=== PATIENT | male | born 1930 | race Caucasian/White ===

== ENCOUNTER 2017-02-10 17:49 | Inpatient (IN) | payer MEDICARE, OTHER ==
[~2017-02-10] VITALS: Ht 190.5 cm; Wt 120.1 kg
[~2017-02-10 17:49] MED LIST: ASP81TEC PO; COU25 PO; COU5 PO; DOCU-42 PO; FURO40TA PO; HYDR1TAB69 PO; LIP20 PO; MTP50TCR PO; VALA1000 PO; ZES5 PO; [UNRECOGNIZED DRUG - CODE] PO
[2017-02-10 17:58] VITALS: BP 139/79; PULSE 97; RESP 16; O2SAT 96
--- NOTE | 2017-02-10 18:11 | ED.REPORT ---
HPI-Abd Pain M 40 and Over Date of Service February 10, 2017 ED Provider: Dr. Taco Shafer The patient is an 85 year old anticoagulated male with a history of bladder cancer, A-fib, and HTN who presents to the ED accompanied by his due to abdominal pain onset approximately 3 hrs ago. He was working on his truck this afternoon and he had to pull and wrench a nut out of his tractor. Following the incident, he c/o abdominal pain. He is on warfarin. Patient denies chest pain, fever, nausea, vomiting, history of TX, CAD, or CVA, recent changes in medications, or recent antibiotic prescription. Nursing Notes Stated Complaint: ABDOMINAL STRAIN Chief Complaint: Male Abdominal Pain Nursing Notes Reviewed: Yes Allergies: Coded Allergies: No Known Allergies (Unverified , 02/10/17) Scheduled Aspirin-Expunged Drug, Do Not Renew! (Aspirin EC-Expunged Drug, Do Not Renew!) 81 Mg Tablet 81 MG PO DAILY Atorvastatin-Expunged Drug, Do Not Renew! (Atorvastatin-Expunged Drug, Do Not Renew!) 20 Mg Tablet 20 MG PO HS Cefuroxime Axetil (Cefuroxime) 250 Mg Tablet 500 MG PO BID Take 500mg twice a day for five days. Furosemide-Expunged Drug, Do Not Renew! (Lasix-Expunged Drug, Do Not Renew!) 40 Mg Tablet 40 MG PO DAILY Lisinopril-Expunged Drug, Do Not Renew! (Lisinopril-Expunged Drug, Do Not Renew! ) 5 Mg Tablet 5 MG PO DAILY Metoprolol Suc-Expunged Drug, Do Not Renew! (Metoprolol Suc-Expunged Drug, Do Not Renew!) 50 Mg Tber 50 MG PO DAILY 1 1/2 tab Valacyclovir HCl-Expunged Drug, Do Not Renew! (Valtrex-Expunged Drug, Do Not Renew!) 1,000 Mg Tablet 1,000 MG PO Q8 Take 1000mg every 8 hours for 5 days. Warfarin Inactive Drug Do Not Use (Coumadin Inactive Drug Do Not Use) 5 Mg Tablet 5 MG PO Thu/Thu Take on Thursday and Thursday. Warfarin Inactive Drug Do Not Use (Coumadin Inactive Drug Do Not Use) 2.5 Mg Tablet 2.5 MG PO 17 Tue,Th,Thu,Sun Scheduled PRN Docusate Sod-Expunged Drug, Do Not Renew! (Docusate Sod-Expunged Drug, Do Not Renew!) 100 Mg Capsule 100 MG PO BID PRN PRN Take twice a day as needed for constipation. Hydrocod/APAP-Expunged, Do Not Renew! (VICODIN 5/500-Expunged Drug, Do Not Renew ) 1 Each Tablet 1 EACH PO Q4 PRN PRN Take as needed every 4 hours for pain. General Time Seen by MD: 18:10 Chief Complaint Abdominal pain Hx Obtained From: Patient Arrived By: Walk-in Sudden in Onset?: Yes Onset Occurred: 1 - 4 hours ago Symptom Duration: Since onset Location: : Diffuse Quality: Painful Radiation: : Does not radiate Severity: Current: Moderate Recent Healthcare: No recent doctor visit, No recent hospitalization Similar Sx Previous: No Past Medical History Past Medical History Reports: Cancer, Hypertension Reports: Atrial fibrillation Past Surgical History Urostomy Reports: Knee replacement Smoking History Unknown if Ever Smoker Social History Alcohol Use: "Social" Ambulatory Status Independent Review of Systems Constitutional: Denies: Fever Cardiovascular: Denies: Chest pain GI: Reports: Abdominal pain, Denies: Nausea, Vomiting Complete sys rev & neg: except as marked. Neurologic: Denies: Change LOC Physical Exam Initial Vital Signs Vital Signs (First) Date Time Temp Pulse Resp B/P Pulse Ox O2 Delivery O2 Flow Rate FiO2 02/10/17 17:58 36.6 97 16 139/79 96 Room Air Initial VS: Reviewed Head / Eyes: Atraumatic, Normocephalic, PERRL ENT: Mucous membranes moist Extremities: Vascular intact, Neuro intact, No swelling Skin: Warm, Dry General/Constitutional: Awake, Alert, Cooperative, Not toxic appearing Respiratory / Chest: Atraumatic, Breath sounds NL, Breath sounds = bilat Cardiovascular: Heart rate NL, Regular rhythm, Heart sounds NL Abdomen: No rebound Tenderness/Guarding/Rebound: Positive: Tender epigastric midline tenderness Back: Atraumatic, Inspection NL Interpretation & Diagnostics Lab Results Interpretation Result Diagram: 02/10/17190102/10/171901 Test 02/10/17 19:02 02/10/17 21:02 White Blood Count 9.2th/mm3 (3.8-10.1) Red Blood Count 5.18mil/mm3 (4.40-5.80) Hemoglobin 16.7g/dL (13.8-17.2) Hematocrit 49.7% (41.0-50.0) Mean Corpuscular Volume 95.9fL (81-100) Mean Corpuscular Hemoglobin 32.2pg (27.0-35.0) Mean Corpuscular Hemoglobin Concent 33.6% (32.0-37.0) Red Cell Distribution Width 13.7% (12.3-15.4) Platelet Count 107bil/L (150-400) Neutrophils (%) (Auto) 89.2% (40-74) Lymphocytes (%) (Auto) 4.9% (14-46) Monocytes (%) (Auto) 5.6% (4-12) Eosinophils (%) (Auto) 0.1% (0-5) Basophils (%) (Auto) 0.1% (0-3) Prothrombin Time 23.2sec (8.1-12.5) Prothromb Time International Ratio 2.13ratio Sodium Level 139mEq/L (134-144) Potassium Level 4.6mEq/L (3.5-5.2) Chloride Level 103mEq/L (97-108) Carbon Dioxide Level 18mmol/L (18-29) Blood Urea Nitrogen 15mg/dL (8-27) Creatinine 0.83mg/dL (0.76-1.27) Estimat Glomerular Filtration Rate 93mL/min (>59) Glucose Level 122mg/dL (60-99) Lactic Acid Level 2.0mmol/L (0.4-2.0) Calcium Level 10.2mg/dL (8.5-10.1) Magnesium Level 1.9mg/dL (1.6-2.6) Total Bilirubin 1.2mg/dL (0.0-1.2) Aspartate Amino Transf (AST/SGOT) 33U/L (0-50) Alanine Aminotransferase (ALT/SGPT) 20U/L (0-44) Alkaline Phosphatase 74U/L (25-160) Total Protein 7.5g/dL (6.4-8.4) Albumin 4.2g/dL (3.4-5.0) Lipase 56U/L (13-60) Urine Color Yellow (YELLOW) Urine Appearance Hazy (CLEAR,HAZY) Urine pH 6.0 (5.0-8.0) Urine Specific [place] 1.020 (1.003-1.035) Urine Protein 30mg/dL (NEG,TRACE) Urine Glucose (UA) Negativemg/dL (NEGATIVE) Urine Ketones Tracemg/dL (NEGATIVE) Urine Occult Blood Moderate (NEGATIVE) Urine Nitrite Positive (NEGATIVE) Urine Bilirubin Negative (NEGATIVE) Urine Urobilinogen Normalmg/dL (NORMAL) Urine Leukocyte Esterase Small (NEGATIVE) Urine RBC 3-10/hpf (0-2) Urine WBC 0-5/hpf (0-5) Urine Epithelial Cells Few/hpf (NONE-MOD) Urine Crystals None seen (NONE SEEN) Urine Bacteria Many/hpf (NONE-FEW) Urine Hyaline Casts None/lpf (NONE) Urine Granular Casts None seen (NONE SEEN) Urine Waxy Casts None seen (NONE SEEN) Urine Red Blood Cell Casts None seen (NONE SEEN) Urine White Blood Cell Casts None seen (NONE SEEN) Urine Mucus None seen (None Seen) Urine Trichomonas None seen (NONE SEEN) Urine Yeast None (NONE SEEN) Urinalysis Comment None Urine Culture Reflexed Indicated ECG Interpretation 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 Cannot exclude developing bowel obstruction, including closed-loop obstruction or internal hernia, although the transition point and exact anatomy is unknown. As clinically required, surgical consultation could be obtained. Large left inguinal bowel and fat containing hernia, unchanged. Dictated by: Emerson Hill M.D. on 02/10/2017 at 20:09 Approved by: Emerson Hill M.D. on 02/10/2017 at 20:26 Study type: Abdominal CT no contrast Interpretation / Wet Read by: Interpret - Radiologist Re-Eval/Medical Decision Med Decision/Clinical Course The CT is worrisome. Mr. Whitehead is cooker tender in spite of aliquots of opiates. I will admit him the hospital for surgical consultation and IV antibiotic for urinary tract infection. He will be admitted to the hospitalist service of Dr. Mann will perform a consultation emergency department. Time of Eval: 21:30 Re-Evaluation/Progress Note: Pt rechecked. Informed pt of results of abdominal CT and need for admission. Pt understands and agrees with plan. All questions addressed. Consultation : Referral / Consult Name: Ilan Mann MD Consulted With: Hospitalist Call Returned at: 21:30 Regional Vice President Surgical Sales: Will see patient, Agrees with eval, Agrees with plan Note: Dr. Mann will see pt in the ED. Counseled Regarding: Diagnosis, Lab results, Need for admission Discharge & Departure Primary Impression: Epigastric pain Additional Impressions: Bowel obstruction Intestinal obstruction type: other intestinal obstruction Qualified Code: K56.69 - Other intestinal obstruction Urinary tract infection Urinary tract infection type: acute cystitis Hematuria presence: without hematuria Qualified Code: N30.00 - Acute cystitis without hematuria Disposition: ADMITTED TO HOSPITAL Vital Signs - All Vital Signs Date Time Temp Pulse Resp B/P Pulse Ox O2 Delivery O2 Flow Rate FiO2 02/10/17 21:47 36.8 99 18 148/88 97 Room Air 02/10/17 17:58 36.6 97 16 139/79 96 Room Air )( All Prior VS Reviewed: Yes Condition: Stable Referrals: [facility] Scribe Attestation Portion of this note were transcribed by Hallie Mcmillan. I, Dr. Taco Shafer, personally performed the history, physical exam, and medical decision-making: I reviewed and confirmed the accuracy for the information in the transcribed note. Signed by: shanta Hayward, 02/10/17 2200 copies to: [facility] Tcao Shafer DO February 10, 2017 18:11 Hallie Mcmillan February 10, 2017 18:35
[2017-02-10] MEDS ORDERED: 0.9% Sodium Chloride 1,000 ML IV ONE (18:32)
[2017-02-10] MEDS: fentaNYL-PF 50 mCg/mL 2 mL Inj IVPUSH PRN ×3 (19:05→21:08)
[2017-02-10 19:16] LABS: BASOPHILS % (AUTO) 0.1 % (0-3); EOSINOPHILS % (AUTO) 0.1 % (0-5); MONOCYTES % (AUTO) 5.6 % (4-12); Mean Corpuscular Hemoglobin 32.2 pg (27.0-35.0); Mean Corpuscular Volume 95.9 fL (81-100); NEUTROPHILS % (AUTO) 89.2 % (40-74); Platelet Count 107 bil/L (150-400)
[2017-02-10 19:27] LABS: INR 2.13 ratio
[2017-02-10 19:33] LABS: Magnesium 1.9 mg/dL (1.6-2.6)
--- NOTE | 2017-02-10 20:27 | DRSVH ---
PROCEDURE: CT ABDOMEN AND PELVIS WITH CONTRAST ([id number]) INDICATIONS: midline belly pain, on warfarin, trauma TECHNIQUE: After the administration of intravenous contrast, 5 mm thick sections acquired from the diaphragm to the symphysis. 5 mm coronal and sagittal reformats were acquired. For radiation dose reduction, the following was used: automated exposure control, adjustment of mA and/or kV according to patient yaritza tavares COMPARISON: [facility], CT, CT KUB, 01/31/2016, 12:32. FINDINGS: Image quality: Excellent. ABDOMEN: Lung bases: Bibasilar scarring/atelectasis. Heart is enlarged. There are coronary artery calcificatio ns. Solid organs: Liver and spleen are normal in size and enhancement, except for a 3 mm splenic hypoden sity on image 30 which is too small to characterize definitively. Gallbladder surgically absent. Bi liary system is non dilated. Pancreas enhances normally. No adrenal nodules. Multiple bilateral dorinda al cysts are present. No definite hydronephrosis. There is mild dilatation of the right ureter howeve r this is unchanged since 01/31/16. Peritoneum and bowel: There is a dilated bowel loop measuring 6 cm in diameter containing gas and padmini ris seen on image 39 series 2. . No free fluid or free air. There is moderate stool. The rectum is decompressed otherwise unremarkab le. The appendix is not clearly identified. 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 Aorta and inferior vena cava are normal in size. Miscellaneous: No ventral hernias. PELVIS: Genitourinary: The bladder is resected. Miscellaneous: Large left inguinal hernia containing fat and bowel loops without evidence of obstruct ion at this time. Bones: No suspicious bony lesions. No vertebral body compression fractures. Diffuse osteopenia is present. There are scattered discogenic changes and scoliosis. IMPRESSION: Dilated bowel loop seen within the midline upper abdomen, probably a loop of colon with large amount of stool. Cannot exclude developing bowel obstruction, including closed-loop obstruction or internal hernia, although the transition point and exact anatomy is unknown. As clinically required, surgical consultation could be obtained. Large left inguinal bowel and fat containing hernia, unchanged. Dictated by: Emerson Hill M.D. on 02/10/2017 at 20:09 Approved by: Emerson Hill M.D. on 02/10/2017 at 20:26
[2017-02-10] MEDS ORDERED: HYDROmorphone 0.5 mg/0.5 mL iSecure Syringe IVPUSH PRN (21:15)
[2017-02-10 21:24] LABS: APPEARANCE,URINE HAZY (CLEAR,HAZY); COLOR,URINE YELLOW (YELLOW); OCCULT BLOOD,URINE MODERATE (NEGATIVE); UROBILINOGEN,URINE NORMAL (NORMAL)
[2017-02-10] MEDS ORDERED: cefTRIAXone Inj 2,000 MG in Dextrose 5% Minibag Plus 50 ML IV ONE (21:35)
[2017-02-10 21:47] VITALS: BP 148/88; PULSE 99; RESP 18; O2SAT 97
[2017-02-10] MEDS ORDERED: Polyethylene Glycol (PEG) 17 Gm Powder PO PRN (22:35)
[2017-02-10] MEDS ORDERED: Ondansetron 2 mg/mL 2 mL Inj IVPUSH PRN (22:35)
[2017-02-10] MEDS ORDERED: Alum-Mag Hydrox-Simeth 30 mL Suspension PO PRN (22:35)
--- NOTE | 2017-02-10 22:48 | PCM.HPMED ---
Subjective Date of Service February 10, 2017 Primary Provider: Admitting Physician: Primary Care Physician: Kar Russo DO Attending Physician: Chief Complaint: Abdominal Pain History of Present Illness: Jai Whitehead is an 86 year old gentleman with a PMH of Afib on coumadin, bladder cancer s/p chemotherapy and partial resection, and HTN who presents with a 1 day history of abdominal pain that he describes as sharp and located in a band around his midsection. He relates that he was working on a tractor earlier today and was in an awkward position wrenching on a stubborn bolt when he gradually manifested a sharp, crampy abdominal pain in a band about his midsection around the level of the umbilicus. He denies any history of similar events in the past. He did feel some associated nausea with a single episode of emesis. He states that he last BM was early this AM, but that he cannot recall having passed flatus since that small BM despite feeling "Gassy". He cannot recall the exact nature of his treatment for his bladder cancer but he does know that it included chemotherapy and partial bladder resection and subsequent placement of urostomy tubes. He denies chest pain, SOB, hematochezia, alteration in bladder habits, fever/chills, or constitutional symptoms. In the ED the patient underwent CT of the abdomen which revealed a likely though not definite SBO, and urinalysis reveals signs of active UTI. The patient responded well to PRN dilaudid. Review of Systems: Comprehensive ROS negative except as outlined above in the HPI Allergies Coded Allergies: No Known Allergies (Unverified , 02/10/17) Home Medications Scheduled Aspirin-Expunged Drug, Do Not Renew! (Aspirin EC-Expunged Drug, Do Not Renew!) 81 Mg Tablet 81 MG PO DAILY Atorvastatin-Expunged Drug, Do Not Renew! (Atorvastatin-Expunged Drug, Do Not Renew!) 20 Mg Tablet 20 MG PO HS Cefuroxime Axetil (Cefuroxime) 250 Mg Tablet 500 MG PO BID Take 500mg twice a day for five days. Furosemide-Expunged Drug, Do Not Renew! (Lasix-Expunged Drug, Do Not Renew!) 40 Mg Tablet 40 MG PO DAILY Lisinopril-Expunged Drug, Do Not Renew! (Lisinopril-Expunged Drug, Do Not Renew! ) 5 Mg Tablet 5 MG PO DAILY Metoprolol Suc-Expunged Drug, Do Not Renew! (Metoprolol Suc-Expunged Drug, Do Not Renew!) 50 Mg Tber 50 MG PO DAILY 1 1/2 tab Valacyclovir HCl-Expunged Drug, Do Not Renew! (Valtrex-Expunged Drug, Do Not Renew!) 1,000 Mg Tablet 1,000 MG PO Q8 Take 1000mg every 8 hours for 5 days. Warfarin Inactive Drug Do Not Use (Coumadin Inactive Drug Do Not Use) 5 Mg Tablet 5 MG PO Thu/Thu Take on Thursday and Thursday. Warfarin Inactive Drug Do Not Use (Coumadin Inactive Drug Do Not Use) 2.5 Mg Tablet 2.5 MG PO 17 Thu,,Thu,Sun Scheduled PRN Docusate Sod-Expunged Drug, Do Not Renew! (Docusate Sod-Expunged Drug, Do Not Renew!) 100 Mg Capsule 100 MG PO BID PRN PRN Take twice a day as needed for constipation. Hydrocod/APAP-Expunged, Do Not Renew! (VICODIN 5/500-Expunged Drug, Do Not Renew ) 1 Each Tablet 1 EACH PO Q4 PRN PRN Take as needed every 4 hours for pain. PMH Bladder Cancer, Hypertension Atrial fibrillation on coumadin Surgical History Urostomy partial cystectomy Knee replacement Family History Patient cannot recall relevant family history, has likely outlived any relevant history Social History Hx Alcohol Use: Yes Hx Substance Use: No Hx Tobacco Use: No Smoking Status: Unknown if Ever Smoker Exam Vital Signs Vital Sign - Last Date Time Temp Pulse Resp B/P Pulse Ox O2 Delivery O2 Flow Rate FiO2 02/10/17 21:47 36.8 99 18 148/88 97 Room Air Exam Gen: A/O x3, pleasant cooperative gentleman in NAD Neck: Supple, non tender, Full ROM HEENT: PERRL, EOMI, mild scleral icterus, no conjunctival pallor, mucous membranes moist CV: Irregularly irregular, no murmurs rubs or gallops Resp: Lungs CTA BL, no wheezing rales or rhonchi Abd: Soft, mild LLQ tenderness to palpation, no rebound masses or guarding, BS+ 4Q Extr: No cyanosis or clubbing, moderate BL non pitting LE edema Neuro: CN 2-12 grossly intact, no focal neurologic deficit. Lab and Diagnostics Labs Item Value Date Time Red Blood Count 5.18 mil/mm3 02/10/171901 Neutrophils (%) (Auto) 89.2 % H 02/10/171901 Lymphocytes (%) (Auto) 4.9 % L 02/10/171901 Monocytes (%) (Auto) 5.6 % 02/10/171901 Eosinophils (%) (Auto) 0.1 % 02/10/171901 Basophils (%) (Auto) 0.1 % 02/10/171901 Estimat Glomerular Filtration Rate 93 mL/min 02/10/171901 Lactic Acid Level 2.0 mmol/L 02/10/171901 Calcium Level 10.2 mg/dL H 02/10/171901 Magnesium Level 1.9 mg/dL 02/10/171901 Total Bilirubin 1.2 mg/dL 02/10/171901 Aspartate Amino Transf (AST/SGOT) 33 U/L 02/10/171901 Alanine Aminotransferase (ALT/SGPT) 20 U/L 02/10/171901 Alkaline Phosphatase 74 U/L 02/10/171901 Total Protein 7.5 g/dL 02/10/171901 Albumin 4.2 g/dL 02/10/171901 Lipase 56 U/L 02/10/171901 Result Diagram: 02/10/17190102/10/171901 X-Rays, CTs and MRIs CT ABDOMEN AND PELVIS WITH CONTRAST IMPRESSION: Dilated bowel loop seen within the midline upper abdomen, probably a loop of colon with large amount of stool. Cannot exclude developing bowel obstruction, including closed-loop obstruction or internal hernia, although the transition point and exact anatomy is unknown. As clinically required, surgical consultation could be obtained. Large left inguinal bowel and fat containing hernia, unchanged. Dictated by: Emerson Hill M.D. on 02/10/2017 at 20:09 Approved by: Emerson Hill M.D. on 02/10/2017 at 20:26 . 12-lead ECG Afib, RBBB, old inferior infarct Assessment & Plan Jai Whitehead is an 86 year old man with a PMH of Afib on coumadin, bladder cancer s/p partial resection, and HTN who presents with a 1 day history of abdominal pain with associated nausea and vomiting. CT scan indicative of likely SBO, UA indicates active UTI. 1. Likely Small bowel obstruction, POA, acute. Active -Dr. Mann has been made aware of the patient and will see him to render recommendations -NPO -Given 1L of NS in the ED, continued at 100 ml/hr -Will defer to Dr. Mann whether NG tube is necessary, and timing of possible gastrographin challenge test -Dilaudid 0.5 mg Q4 PRN for pain control(patient advised on side effects of opiate analgesia and will use sparingly) -Track for BM or flatus 2. Afib with RVR, POA, chronic. Active -Continue home Metoprolol 50 mg PO daily -Warfarin dosing per pharmacist -INR 2.13 -Tele monitoring 3. HTN, POA, chronic. Active -Metoprolol as above -Holding home Lasix while giving IVF -Continue home Lisinopril 4. Uncomplicated urinary tract infection -Urine culture pending -Ceftriaxone 2g Q24 -IVF as above Code Status: DNR/DNI Disposition: Patient admitted under inpatient status with expected length of stay > 2 midnights for severity of present symptoms, complexities of treatment plan and risk for adverse event Pain Evaluation: Adequate Pain Control GI Prophylaxis: H2 clarke VTE Prophylaxis: Theraputic Anticoag with Warfarin Resuscitation Status: DNR/DNI:Do Not Resuscitate/Intubate Attending Statement The patient was seen and examined together with Dr. Bender on 02/10 and I agree with the history, exam and plan as outlined in the note above. Ilan Bender DO February 10, 2017 22:48 Tommy Pollard MD February 11, 2017 02:22
--- NOTE | 2017-02-10 23:09 | PCM.CONPHA ---
Assessment/Plan Assessment/Plan ANTICOAGULATION MANAGEMENT BY PHARMACY -INDICATION: afib -HOME DOSE: 2.5 MG DAILY EXCEPT THURSDAY HE TAKES 5 MG -CONCURRENT ANTICOAGULATION: none -CRCL: 90.4 ML/MIN -COAG TRENDS: Date INR 2.13 -[id number] SCORE: 3 PLAN: Patient took home dose of Warfarin this morning, INR within range. Will dose tomorrow based on morning INR Pharmacy appreciates consult and will continue to monitor. THANKS! Jessica Larson PharmD February 10, 2017 23:09
--- NOTE | 2017-02-10 23:20 | NUR ---
Admit Pt arrived on unit via stretcher by Alondra at 2320. Report given by Danielle Torres RN. Pt ambulated with cane to bedside. Pt stated pain 3/10. Pt BP elevated. Pt put on tele.
[2017-02-10 23:35] VITALS: BP 170/95; PULSE 90; RESP 19; O2SAT 97
[2017-02-11] VITALS (8 sets, daily range): BP systolic 138–166; BP diastolic 79–94; PULSE 69–113; RESP 16–19; O2SAT 93–96
[2017-02-11] MEDS: HYDROmorphone 0.5 mg/0.5 mL iSecure Syringe IVPUSH PRN (00:20)
[2017-02-11] MEDS: 0.9% Sodium Chloride 1,000 ML IV SCH ×3 (00:28→20:58)
[2017-02-11] MEDS: Sodium Chloride LOK Flush 10 mL Syringe IVFLUSH SCH ×3 (00:30→16:10)
--- NOTE | 2017-02-11 00:31 | CONS ---
[address] [address] CONSULTATION REPORT PATIENT: DILIP NGUYEN : 1930 MR#: [id number] ADMIT: 02/10/2017 JOB ID: [id number] DATE OF SERVICE: 02/10/2017 CHIEF COMPLAINT AND IDENTIFICATION: I have been asked to consult on this 86-year-old man in the emergency department with a CT reading of possible bowel obstruction, regarding a possible bowel obstruction. HISTORY OF PRESENT ILLNESS: The patient has no recent history of nausea or vomiting, nor decreased stool output. He has on average a soft bowel movement each day and he had a normal bowel movement today. This afternoon, he changed the cutting blades on his lawn tractor by driving it up onto some blocks and then lying underneath on his back with a fair amount of torquing and twisting, after which he noted that he had terrible abdominal pain and felt that he had pulled a muscle. He denies direct abdominal trauma and felt that this was a muscular strain, but when he contacted the nurse he was instructed to come to the emergency department primarily as he is on anticoagulation. In our emergency department, a CAT scan was obtained looking for rectus hematoma as the patient is anticoagulated but none was found. Workup also noted the patient to have significant urinary tract infection in his ileal conduit. PAST MEDICAL HISTORY: Bladder cancer, status post resection, hypertension, atrial fibrillation on Coumadin, status post knee replacement. MEDICATIONS: Aspirin, atorvastatin, lisinopril, metoprolol, warfarin. ALLERGIES: None. SOCIAL HISTORY: Negative tobacco. Negative daily alcohol use. FAMILY HISTORY: REVIEW OF SYSTEMS: Per admission history and physical. PHYSICAL EXAMINATION: Tall, vibrant man insisting on standing up to greet me when I came in to see him in the emergency department. Temperature is 36.8, pulse is recorded at 99, blood pressure is 148/88. Abdominal examination reveals that he has normal bowel tones, no significant upper abdominal tenderness, and no upper abdominal hernias. LABORATORIES: His white count is 9.2, his is 49.7, platelet count is 107. Electrolytes are normal. Calcium is high at 10.2. LFTs are normal. Albumin is 4.2. Lipase is 56. UA demonstrates moderate blood, positive nitrites, many bacteria. IMAGING: CT scan has been reviewed, both images and the reports. The report notes that he has a dilated bowel loop seen within the midline upper abdomen, probably a loop of colon with a large amount of stool. The report also says "cannot exclude developing bowel obstruction." There is a left inguinal hernia that has been seen on previous CT scans by report, and to my view there is no sign of small bowel obstruction on his films. He does seem to have gas and stool throughout his colon, and interestingly, most of the colon does not appear to be dilated except for this one large loop that would apparently be in the transverse colon. It does have a bit of an unusual appearance and at first I thought it might be a dilated stomach as his stomach is a bit enlarged. There is no sign of small bowel obstruction to my reading. IMPRESSION AND PLAN: An 86-year-old man with a history of bladder cancer and a bowel abnormality on his CT scan. I do not think he has a bowel obstruction given his lack of obstructive symptoms and the appearance of this CAT scan. Nonetheless, he does have an abnormal loop of bowel that I believe is his colon and General Surgery will follow along until the exact etiology of his abdominal pain is determined, as requested by the medical service.
[2017-02-11 07:33] LABS: BASOPHILS % (AUTO) 0 % (0-3); EOSINOPHILS % (AUTO) 0 % (0-5); MONOCYTES % (AUTO) 7.4 % (4-12); Mean Corpuscular Hemoglobin 32.3 pg (27.0-35.0); Mean Corpuscular Volume 97.3 fL (81-100); NEUTROPHILS % (AUTO) 87.4 % (40-74); Platelet Count 101 bil/L (150-400)
[2017-02-11 07:41] LABS: INR 2.69 ratio
[2017-02-11 07:50] LABS: Magnesium 1.9 mg/dL (1.6-2.6); Phosphorus 2.7 mg/dL (2.5-4.9)
[2017-02-11] MEDS ORDERED: WARF2.5T82 PO (08:04)
[2017-02-11] MEDS ORDERED: WARF5TAB7 PO (08:04)
[2017-02-11] MEDS ORDERED: BIMA2.5D5 BOTH_EYES (08:05)
[2017-02-11] MEDS ORDERED: ATOR40TA69 PO (08:05)
[2017-02-11] MEDS ORDERED: ASPI-973 PO (08:06)
[2017-02-11] MEDS ORDERED: LISI-571 PO (08:08)
[2017-02-11] MEDS ORDERED: METO-272 PO (08:08)
--- NOTE | 2017-02-11 09:14 | NUR ---
Social Work-initial assessment: Data:See initial assessment. Pt is a 86 y/o male who was admitted on 02/10/17 for abd pain per H&P. Pt's insurance is [employer] and PCP is Kar Russo MD. EMR reviewed. SW met with pt at bedside to discuss discharge planning, SW role explained. Pt is alert and oriented x3. Pt resides at home with his who has dementia, pt is primary caregiver. Pt's daughter Kristal is staying with at home while pt is in the hospital. Pt uses a cane to ambulate and does drive. Pt has no HH or SNF history. Pt has no nursing home care insurance or VA benefits. SW discussed DPOA/ advanced directive, pt confirms he has completed this, SW encouraged a copy to be brought in. SW discussed assistance for pt's , but pt feels like things are going fine at home. Per RN notes, pt has been up independent in his room. Pt confirms that his daughter or he will drive himself home. SW provided phone number and plan on white board in room. No anticipated discharge needs. SW will continue to follow. Assessment:pt who is independent at baseline. Plan:Pt to discharge home when medically stable via POV. No anticipated discharge needs. SW will continue to follow. KSENIA Mirza Addendum: 02/11/17 at 0917 by JOSEPH MCPHERSON SS Amended: Links added.
[2017-02-11] MEDS: MeTOProlol XL 50 mg ER24 Tablet PO SCH (09:18)
[2017-02-11] MEDS: Famotidine Inj 20 MG in IV Premix 1 EACH IV SCH ×2 (09:24→20:58)
[2017-02-11] MEDS: fentaNYL-PF 50 mCg/mL 2 mL Inj IVPUSH PRN (10:29)
--- NOTE | 2017-02-11 14:41 | PCM.PNSURG ---
Subjective Date of Service: February 11, 2017 Date of Service: February 11, 2017 Visit Information: Reason for Visit Abd Pain Uti Early Bowel Obstruction Surgery/Surgery Date Post-Op Day # Date of Admission: February 10, 2017 at 23:01 Hospital Day #1 Subjective: Patient describes persistent upper abdominal ache which is described as similar to when he tries to defecate and use his abdominal muscles when constipated. He reports this pain to be noted before this admit but usually goes away. Reports no BM or flatus since admit. 1 bout of emesis early this am. Not nauseous at time of interview. Denies fevers, chills, chest pain or sob. Postop General: Other (upper abdominal pain) Gastrointestinal: No N/V, Other (no flatus) Pain Management: IV Push (fentanyl, dilaudid) Postop Activity: Other (unable to ambulate 2/2 to lines) Objective Objective pleasant, mildly confused elderly male in no apparent distress Vital Sign- Last 8 Hours Date Time Temp Pulse Resp B/P Pulse Ox O2 Delivery O2 Flow Rate FiO2 02/11/17 12:12 36.6 69 16 162/81 96 Room Air 02/11/17 11:09 80 02/11/17 09:00 37.0 78 18 163/79 96 Room Air Intake and Output- Last 8 Hour 02/11/17 Cumulative From/Thru 07:00 02/10/17 17:58 - 02/11/17 06:42 Intake Total 609 ml 1609 ml Output Total 700 ml 700 ml Balance -91 ml 909 ml Intake IV Total 609 ml 1609 ml Output Urine Total 700 ml 700 ml General: Alert, Cooperative Lungs: Clear to Auscultation Abdomen: Soft, Non-tender, Non-distended, No masses, Normoactive bowel tones Extremities: Distal Pulses Palpable Catheters: None Result Diagram: 02/11/1770202/11/17702 Diagnostics: PROCEDURE: CT ABDOMEN AND PELVIS WITH CONTRAST ([id number]) ABDOMEN: Lung bases: Bibasilar scarring/atelectasis. Heart is enlarged. There are coronary artery calcifications. Solid organs: Liver and spleen are normal in size and enhancement, except for a 3 mm splenic hypodensity on image 30 which is too small to characterize definitively. Gallbladder surgically absent. Biliary system is non dilated. Pancreas enhances normally. No adrenal nodules. Multiple bilateral renal cysts are present. No definite hydronephrosis. There is mild dilatation of the right ureter however this is unchanged since 01/31/16. Peritoneum and bowel: There is a dilated bowel loop measuring 6 cm in diameter containing gas and debris seen on image 39 series 2. No free fluid or free air. There is moderate stool. The rectum is decompressed otherwise unremarkable. The appendix is not clearly identified. 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 Aorta and inferior vena cava are normal in size. Miscellaneous: No ventral hernias. PELVIS: Genitourinary: The bladder is resected. Miscellaneous: Large left inguinal hernia containing fat and bowel loops without evidence of obstruction at this time. Bones: No suspicious bony lesions. No vertebral body compression fractures. Diffuse osteopenia is present. There are scattered discogenic changes and scoliosis. IMPRESSION: Dilated bowel loop seen within the midline upper abdomen, probably a loop of colon with large amount of stool. Cannot exclude developing bowel obstruction, including closed-loop obstruction or internal hernia, although the transition point and exact anatomy is unknown. As clinically required, surgical consultation could be obtained. Large left inguinal bowel and fat containing hernia, unchanged. Assessment & Plan Impression possible early sbo Problems: Plan continue NPO Rocephin KUB in AM PT AM labs Pain Management: fentanyl, dilaudid VTE Prophylaxis: Theraputic Anticoag with Warfarin Resuscitation Status: DNR/DNI:Do Not Resuscitate/Intubate Jordy Gama PA-C February 11, 2017 14:41
--- NOTE | 2017-02-11 17:08 | NUR ---
Mentation/Vomiting Pt. vomited once this morning and PRN zofran was given as well as fentanyl to help with abdominal pain. Both N/V resolved but pain is still persistent. Pt. states he will let me know when he wants another PRN pain medication. As of now Pt. states his pain level is at a consistent 5 to 6 out of 10. Pt. appears to be more forgetful than he was this morning. Pt. around 1315 disconnected his IV and was fumbling around his room. After reorientating Pt. he became cooperative with care and understood why he needed to stay and use hi scall light for assistance. Pt. continues to forget to sabrina call light and bed alarm is put on. Will continue to monitor and MD made aware.
--- NOTE | 2017-02-11 19:04 | PCM.PNMED ---
Subjective Date of Service February 11, 2017 Subjective Patient was seen and examined at bedside today. Patient denies any chest pain, shortness of breath. Patient reports nausea and vomiting. There are some signs of dementia with this patient so obtaining a full history is questionable. Overnight events: None Exam Vital Signs Vital Sign - Last Date Time Temp Pulse Resp B/P Pulse Ox O2 Delivery O2 Flow Rate FiO2 02/11/17 16:27 36.6 76 16 150/94 94 Room Air Intake and Output 02/10/17 02/10/17 02/11/17 Cumulative From/Thru 15:00 23:00 07:00 02/10/17 17:58 - 02/11/17 06:42 Intake Total 1000 ml 609 ml 1609 ml Output Total 700 ml 700 ml Balance 1000 ml -91 ml 909 ml IV Total 1000 ml 609 ml 1609 ml Output Urine Total 700 ml 700 ml Exam Physical Exam: GEN: Patient was awake, alert, responding appropriately to questions HEENT: Pupils equal round and reactive to light, extraocular eye muscles intact , Neck soft supple, trachea midline, nomocephalic/atraumatic CV: + S3, regular rate , no murmurs auscultated Respiratory: CTAB, no wheezes, rales, rhonchi GI: Hypoactive bowel sounds, soft, compressible, nontender to palpation : Urine bag intact EXT: no clubbing, cyanosis, edema Neuro: Cranial nerves II-XII grossly intact Psych: mood and affect were appropriate IVs and Medications Medications Reviewed: Medications were reviewed in detail Lab and Diagnostics Result Diagram: 02/11/1770202/11/17 07 X-Rays, CTs and MRIs CT ABDOMEN AND PELVIS WITH CONTRAST IMPRESSION: Dilated bowel loop seen within the midline upper abdomen, probably a loop of colon with large amount of stool. Cannot exclude developing bowel obstruction, including closed-loop obstruction or internal hernia, although the transition point and exact anatomy is unknown. As clinically required, surgical consultation could be obtained. Large left inguinal bowel and fat containing hernia, unchanged. Dictated by: Emerson Hill M.D. on 02/10/2017 at 20:09 Approved by: Emerson Hill M.D. on 02/10/2017 at 20:26 . 12-lead ECG Afib, RBBB, old inferior infarct Assessment & Plan Jai Whitehead is an 86 year old man with a PMH of Afib on coumadin, bladder cancer s/p partial resection, and HTN who presents with a 1 day history of abdominal pain with associated nausea and vomiting. CT scan indicative of likely SBO, UA indicates active UTI. Likely Small bowel obstruction, POA, acute. Active -Dr. Mann (general surgery), following -NPO -Continue normal saline at 100 ml/hr -Dilaudid 0.5 mg Q4 PRN for pain control(patient advised on side effects of opiate analgesia and will use sparingly) Afib with RVR, POA, chronic. Active -Continue home Metoprolol 50 mg PO daily -Warfarin dosing per pharmacist -INR 2.13 -Tele monitoring HTN, POA, chronic. Active -Metoprolol as above -Holding home Lasix while giving IVF -Continue home Lisinopril Uncomplicated urinary tract infection -Urine culture pending -Ceftriaxone 2g Q24 -IVF as above Code Status: DNR/DNI Disposition: The patient seems to be progressing well and returning back to his baseline status and will most likely be discharged tomorrow. At this time placement may be an issue with the patient and will follow up with PT in the morning. GI Prophylaxis: H2 clarke VTE Prophylaxis: Theraputic Anticoag with Warfarin Resuscitation Status: DNR/DNI:Do Not Resuscitate/Intubate Elma Mcfarlane DO February 11, 2017 19:04
--- NOTE | 2017-02-11 19:45 | NUR ---
Neuro Pt stating he needs to go. That he has family waiting for him outside to take him home. Pt was then told he wasn't discharged yet and that he has an x-ray tomorrow and IV antibiotics to have tonight. Pt stated he was not told this and that he hadn't seen a doctor today. Pt became upset with the idea of staying and having family being here to get him. Pt talked into waiting in his room until family contacted. Pt stated "I will wait a reasonable amount of time...15 minutes." Pt called and daughter Rocio picked up. They were under the impression that they would come tomorrow to possibly take him home. I explained the situation. Transferred call to patient room. Talking with family did not seem to help and he stated " I'm sitting in this hotel room." Stated if he had a car he would drive home and that he couldn't call a cab because he doesn't have his wallet. After call was competed he was reoriented that he was in the hospital and that insurance would pay for his stay. He slowly agreed to stay in his room for medications and get x-ray in the am. Evelyn Arriaza sitting with patient.
[2017-02-11] MEDS: cefTRIAXone Inj 2,000 MG in Dextrose 5% Minibag Plus 50 ML IV SCH (22:37)
[2017-02-12] VITALS (8 sets, daily range): BP systolic 135–150; BP diastolic 80–89; PULSE 55–98; RESP 16–18; O2SAT 91–95
[2017-02-12] MEDS: Sodium Chloride LOK Flush 10 mL Syringe IVFLUSH SCH ×3 (00:17→16:10)
--- NOTE | 2017-02-12 05:04 | NUR ---
Neuro Pt had bouts of confusion throughout the night. Pt reoriented as needed. Pt did talks about frustration with being in the hospital and wanting to go home. A goal established with patient is to wait for the arrival of his daughter and around noon. Also to have x-ray taken in the am. RN/RELAY TECHNICIAN sat with patient throughout entire shift due to patient at one point trying to take apart IV so that "I can drink it." Care continues.
[2017-02-12 07:39] LABS: BASOPHILS % (AUTO) 0 % (0-3); EOSINOPHILS % (AUTO) 0 % (0-5); MONOCYTES % (AUTO) 8.7 % (4-12); Mean Corpuscular Hemoglobin 32.3 pg (27.0-35.0); NEUTROPHILS % (AUTO) 87.8 % (40-74); Platelet Count 100 bil/L (150-400)
[2017-02-12 07:55] LABS: INR 4.1 ratio
[2017-02-12] MEDS: Famotidine Inj 20 MG in IV Premix 1 EACH IV SCH ×2 (08:59→20:51)
[2017-02-12] MEDS: 0.9% Sodium Chloride 1,000 ML IV SCH ×2 (08:59→14:35)
[2017-02-12] MEDS: MeTOProlol XL 50 mg ER24 Tablet PO SCH (09:00)
--- NOTE | 2017-02-12 10:43 | DRSVH ---
PROCEDURE: X-RAY KUB ([id number]) INDICATIONS: POSSIBLE SMALL BOWEL OBSTRUCTION TECHNIQUE: One view of the abdomen acquired. COMPARISON: [facility], CT, CT ABD PELVIS W CON, 02/10/2017, 19:51. FINDINGS: Surgical changes and devices: None. Bowel: Gaseous distention of bowel loops within the midabdomen again visualized similar to previous C T scan which may represent the:. Bowel gas pattern otherwise is normal. No pneumatosis or bowel wal l thickening. No pneumoperitoneum. Soft tissues: No suspicious abdominal calcifications. Visualized solid organ contours appear normal in size. Bones: No suspicious bony lesions. IMPRESSION: Gaseous distention of bowel within the midabdomen likely the colon similar to prior exami nation. Developing obstruction cannot be excluded and close clinical correlation and followup is rec ommended. Dictated by: Lencho GARDUNO Interpreted: Suleiman Shah MD on 02/12/2017 at 10:42 Transcribed by: JOVANNI on 02/12/2017 at 10:43 Approved by: Charles Shah M.D. on 02/12/2017 at 10:51
[2017-02-12] MEDS ORDERED: Magnesium Hydroxide 355 mL Oral Suspension PO ONE (13:00)
--- NOTE | 2017-02-12 14:55 | PCM.PHAPRO ---
Progress Abdominal Pain WARFARIN DOSING PER PHARMACY [facility] DFF DFF Date February 11-February 12-February INR 2.13 2.69 4.1 INR change 0.56 1.41 Warf Dose HELD 2.5 MG HOLD A/P -Supratherapeutic INR. Possibly due to ABX and change in activity level. -Holding dose this evening Mathew Germain, PharmD Mathew Germain February 12, 2017 14:55
--- NOTE | 2017-02-12 17:20 | NUR ---
Mentation Pt. has been pleasant and cooperative with care this shift. Bouts of confusion where noted but not as sever as yesterday (02/11/2017) when I was talking care of Pt. during day shift. Pt. is A&Ox2 (self and place), Pt. at this time is in bed resting. Will continue to monitor.
--- NOTE | 2017-02-12 19:37 | PCM.PNMED ---
Subjective Date of Service February 12, 2017 Subjective Patient denies abdominal pain, wants to try eating. No chest pain, no dyspnea. Concerning he has not really had any gas or had a bowel movement since admission. Exam Vital Signs Vital Sign - Last Date Time Temp Pulse Resp B/P Pulse Ox O2 Delivery O2 Flow Rate FiO2 02/12/17 16:19 36.8 98 16 148/86 91 Room Air Intake and Output 02/11/17 02/11/17 02/12/17 Cumulative From/Thru 15:00 23:00 07:00 02/10/17 17:58 - 02/12/17 06:22 Intake Total 1258 ml 1271 ml 4138 ml Output Total 870 ml 975 ml 2545 ml Balance 388 ml 296 ml 1593 ml Intake Oral 200 ml 100 ml 300 ml IV Total 1058 ml 1171 ml 3838 ml Output Urine Total 670 ml 975 ml 2345 ml Emesis 200 ml 200 ml Exam Gen.- A+ O 3 no apparent distress. Eyes- open conjunctiva clear, pupils equal nonicteric ENT- ears normal, nose normal hearing intact Neck- supple/trach midline CVS- RRR no murmur or gallop Lungs- CTA GI- NABS/NT soft, urostomy bag full of clark urine in place. Musc- moving 4 no obvious deformity Neuro- cranial nerves II through XII intact to gross examination, nonfocal Skin- warm and dry, no rashes/lesions/wounds noted Psych- pleasant and appropriate, Lab and Diagnostics Result Diagram: 02/12/17 0702/12/17 07 X-Rays, CTs and MRIs CT ABDOMEN AND PELVIS WITH CONTRAST IMPRESSION: Dilated bowel loop seen within the midline upper abdomen, probably a loop of colon with large amount of stool. Cannot exclude developing bowel obstruction, including closed-loop obstruction or internal hernia, although the transition point and exact anatomy is unknown. As clinically required, surgical consultation could be obtained. Large left inguinal bowel and fat containing hernia, unchanged. Dictated by: Emerson Hill M.D. on 02/10/2017 at 20:09 Approved by: Emerson Hill M.D. on 02/10/2017 at 20:26 . 12-lead ECG Afib, RBBB, old inferior infarct Assessment & Plan 86 year old man admitted with abdominal pain associated nausea and vomiting. CT scan indicative of likely SBO, UA indicates active UTI. 5/11 I am starting patient on clear liquids and giving him some milk of magnesia if he is otherwise doing well I may start him on a regular diet and give him a Dulcolax suppository in the morning 02/13 stimulate bowel action. Clinically he looks all right and I am hopeful that resolution can be induced gently. Small bowel obstruction, POA, acute. Active -Dr. Mann (general surgery), following will discuss further as there was rumored that GI consult was recommended I see no notation or surgical note today 02/12 at 1941 hrs. -NPO, starting clear liquid diet 02/12 -Continue normal saline at 100 ml/hr -Dilaudid 0.5 mg Q4 PRN for pain control(patient advised on side effects of opiate analgesia and will use sparingly) Left inguinal hernia-we will revisit whether this is actually tender and required any intervention however general surgery is following.. Dementia/sundowning-I looked at the patient's EKG personally today 02/12 his QTC is greater than 500 and I am not anxious to start him on any QT prolonging agents such as quetiapine Orser Zyprexa that might settle him down at this point in time. Afib with RVR, POA, chronic. Active -Continue home Metoprolol 50 mg PO daily -Warfarin dosing per pharmacist -INR 2.13 -Tele monitoring discontinued 02/12, patient has no arrhythmias. HTN, POA, chronic. Active -Metoprolol as above -Holding home Lasix while giving IVF -Continue home Lisinopril Uncomplicated urinary tract infection-patient has urostomy protruding from the right side of his abdomen, urine is dark in goal with a little bit of sediment today. 02/12 -Urine culture pending -Ceftriaxone 2g Q24 -IVF as above Code Status: DNR/DNI Disposition: The patient seems to be progressing well and returning back to his baseline status and will most likely be discharged tomorrow. At this time placement may be an issue with the patient and will follow up with PT in the morning. GI Prophylaxis: H2 clarke VTE Prophylaxis: Theraputic Anticoag with Warfarin Resuscitation Status: DNR/DNI:Do Not Resuscitate/Intubate Skip Lundberg MD February 12, 2017 19:37
--- NOTE | 2017-02-12 20:06 | PROG NOTE ---
[address] [address] PROGRESS NOTE PATIENT: DILIP NGUYEN : 1930 MR#: [id number] ADMIT: 02/10/2017 JOB ID: [id number] DATE: 02/12/2017 SUBJECTIVE: The patient reportedly had one episode of emesis last night of related to abdominal pain. As well, there continues to be some question regarding whether he suffers from some dementia. He reports a bowel movement today, but I do not see one recorded. OBJECTIVE: On examination, his abdomen is full, particularly in the mid epigastrium though nontender. Urostomy bag is functioning well. LABORATORY DATA: His white count is up to 11 this morning. His hematocrit is 48. Chemistries are normal including a lactic acid of 1.6. Procalcitonin was slightly high at 1.1. KUB today demonstrates continued gaseous distention of colon essentially unchanged from his scanning tech film. IMPRESSION AND PLAN: I saw the patient early this morning. Initially, followed up on his x-ray and reviewed his films with the radiologist. I then contacted the Medicine Service to make the recommendation that I believe he clearly has some sort of abnormal process going on in his transverse colon, though it is not clear by history, or x-rays that he has any obstruction. My recommendation was a GI consultation for anticipated colonoscopy. This was passed onto the Medicine Service early this morning prior to going to the operating room. Currently, according to the nurse, this GI consultation was discussed on morning rounds but it does not appear that the patient has been seen yet. The patient is stable. I believe whatever was present on admission is still present. My recommendation is GI consultation for consideration of colonoscopy versus some sort of contrast imaging per rectum. General Surgery will continue to follow along.
[2017-02-12] MEDS: cefTRIAXone Inj 2,000 MG in Dextrose 5% Minibag Plus 50 ML IV SCH (21:32)
[2017-02-13] VITALS (8 sets, daily range): BP systolic 103–142; BP diastolic 43–83; PULSE 69–125; RESP 18–40; O2SAT 92–97
[2017-02-13] MEDS: Sodium Chloride LOK Flush 10 mL Syringe IVFLUSH SCH ×4 (00:10→23:28)
[2017-02-13] MEDS: 0.9% Sodium Chloride 1,000 ML IV SCH ×3 (00:35→23:26)
--- NOTE | 2017-02-13 05:00 | NUR ---
Shift note Patiently increasingly restless wanting to get dressed ,pleasant and redirectable but STML needing reorientating to situation frequently needing staff outside room remainder of morning
--- NOTE | 2017-02-13 07:03 | PCM.PNSURG ---
Subjective Date of Service: February 13, 2017 Date of Service: February 13, 2017 Visit Information: Reason for Visit Abd Pain Uti Early Bowel Obstruction Surgery/Surgery Date Post-Op Day # Date of Admission: February 10, 2017 at 23:01 Hospital Day #4 Subjective: Patient seen in hallway while ambulating. Notes no BM or flatus but denies discomfort. Notes dark urine but says he has been drinking alot of water. Denies chest pain or shortness of breath. Denies nausea or vomiting. Postop General: No Shortness of Breath, No Chest Pain Gastrointestinal: Tolerating Oral Feedings, No N/V Neurological: Confusion Postop Activity: Ambulates with Assist Device Objective Objective Pleasant elderly male in no apparent distress. Wants to go home. Vital Sign- Last 8 Hours Date Time Temp Pulse Resp B/P Pulse Ox O2 Delivery O2 Flow Rate FiO2 02/13/17 06:00 36.5 69 20 142/72 96 Room Air Intake and Output- Last 8 Hour 02/13/17 Cumulative From/Thru 07:00 02/10/17 17:58 - 02/13/17 06:21 Intake Total 860 ml 5404 ml Output Total 600 ml 3545 ml Balance 260 ml 1859 ml Intake Oral 640 ml 1160 ml IV Total 220 ml 4244 ml Output Urine Total 600 ml 3345 ml Emesis 200 ml General: Cooperative Lungs: Clear to Auscultation Heart: Regular Rate/Rhythm Abdomen: Soft, Non-tender, Distended (mild distension noted), Normoactive bowel tones Catheters: None Result Diagram: 02/12/17 0725 02/12/17 0725 Assessment & Plan Impression early large bowel obstruction. Problems: Plan Request GI input for colonoscopy vs enema. No clear surgical indication at this time. Surgery to continue to follow. VTE Prophylaxis: Theraputic Anticoag with Warfarin Resuscitation Status: DNR/DNI:Do Not Resuscitate/Intubate Jordy Gama PA-C February 13, 2017 07:03
[2017-02-13 07:22] LABS: INR 6.32 ratio
[2017-02-13] MEDS: MeTOProlol XL 50 mg ER24 Tablet PO SCH (08:02)
[2017-02-13] MEDS: Famotidine Inj 20 MG in IV Premix 1 EACH IV SCH ×3 (08:02→23:27)
--- NOTE | 2017-02-13 09:54 | PCM.PHAPRO ---
Progress Abdominal Pain WARFARIN DOSING PER PHARMACY [facility] DFF DFF DFF Date February 11-February 12-February 13-February INR 2.13 2.69 4.1 6.32 INR change 0.56 1.41 2.22 Warf Dose HELD 2.5 MG HOLD HOLD A/P -Supratherapeutic INR following held doses last evening. Continues to increase but no signs of bleeding noted per RN -Will continue to hold this evening. Mathew Germain, PharmD Mathew Germain February 13, 2017 09:54
[2017-02-13] MEDS ORDERED: Polyethylene Glycol (PEG) 17 Gm Powder PO SCH (10:30)
[2017-02-13] MEDS ORDERED: Magnesium Hydroxide 10 mL Oral Concentration PO ONE (10:30)
--- NOTE | 2017-02-13 12:51 | PCM.PNMED ---
Subjective Date of Service February 13, 2017 Subjective Patient denies any abdominal pain, he still was in a gas or bowel movement. He also notes that his urine is much darker today than it usually is in his urostomy bag. He denies any chest pain, dyspnea, nausea or vomiting. He is very anxious to be discharged home as there needs to be a caregiver for his with dementia and undertaking the task is inconvenient to his children whom he does not want to burden. Exam Vital Signs Vital Sign - Last Date Time Temp Pulse Resp B/P Pulse Ox O2 Delivery O2 Flow Rate FiO2 02/13/17 08:00 37.2 77 18 132/74 92 Room Air Intake and Output 02/12/17 02/12/17 02/13/17 Cumulative From/Thru 15:00 23:00 07:00 02/10/17 17:58 - 02/13/17 06:21 Intake Total 406 ml 860 ml 5404 ml Output Total 400 ml 600 ml 3545 ml Balance 6 ml 260 ml 1859 ml Intake Oral 220 ml 640 ml 1160 ml IV Total 186 ml 220 ml 4244 ml Output Urine Total 400 ml 600 ml 3345 ml Emesis 200 ml Exam Gen.- A+ O 3 no apparent distress. Eyes- open conjunctiva clear, pupils equal nonicteric ENT- ears normal, nose normal hearing intact Neck- supple/trach midline CVS- RRR no murmur or gallop patient has 1-2+ pedal edema Lungs- CTA GI- NABS/NT soft, urostomy bag full of clark urine in place. Musc- moving 4 no obvious deformity Neuro- cranial nerves II through XII intact to gross examination, nonfocal Skin- warm and dry, no rashes/lesions/wounds noted Psych- pleasant and appropriate, Lab and Diagnostics Result Diagram: 02/12/1772402/12/17724 X-Rays, CTs and MRIs CT ABDOMEN AND PELVIS WITH CONTRAST IMPRESSION: Dilated bowel loop seen within the midline upper abdomen, probably a loop of colon with large amount of stool. Cannot exclude developing bowel obstruction, including closed-loop obstruction or internal hernia, although the transition point and exact anatomy is unknown. As clinically required, surgical consultation could be obtained. Large left inguinal bowel and fat containing hernia, unchanged. Dictated by: Emerson Hill M.D. on 02/10/2017 at 20:09 Approved by: Emerson Hill M.D. on 02/10/2017 at 20:26 . 12-lead ECG Afib, RBBB, old inferior infarct Assessment & Plan 86 year old man admitted with abdominal pain associated nausea and vomiting. CT scan indicative of likely SBO, UA indicates active UTI. 02/12 I am starting patient on clear liquids and giving him some milk of magnesia if he is otherwise doing well I may start him on a regular diet and give him a Dulcolax suppository in the morning 02/13 stimulate bowel action. Clinically he looks all right and I am hopeful that resolution can be induced gently. 02/13 still no gas or bowel movement advancing diet giving laxatives to maintain oral regimen in the hope that patient may be dischargeable this evening #Dark urine-repeat urinalysis possibly this is blood with elevated INR although patient's HDL is stable #Afib with RVR, POA, chronic. Active-INR 6.3 02/13 hold warfarin today no sign of bleeding I am not using vitamin K yet -Continue home Metoprolol 50 mg PO daily -Warfarin dosing per pharmacist #Small bowel obstruction, POA, acute. Active -Dr. Mann (general surgery), following, stimulate bowels with suppository and if that is unsuccessful perhaps enema later today. 02/13. Will d/w GI cushion spring assembler to determine f/u plan. -NPO, starting clear liquid diet 02/12 advancing to full liquids 02/13 - normal saline at 100 ml/hr hep-locked 02/12 patient tolerating clear liquids #Left inguinal hernia-we will revisit whether this is actually tender and required any intervention however general surgery is following.. #Dementia/sundowning-I looked at the patient's EKG personally today 02/12 his QTC is greater than 500 and I am not anxious to start him on any QT prolonging agents such as quetiapine Orser Zyprexa that might settle him down at this point in time. #HTN, POA, chronic. Active -Metoprolol as above -Holding home Lasix while giving IVF -Continue home Lisinopril #Uncomplicated urinary tract infection-patient has urostomy protruding from the right side of his abdomen, urine is dark in goal with a little bit of sediment today. 02/12 -Urine culture pending -Ceftriaxone 2g Q24 02/11-02/13. Changing to Keflex 02/13- 4 a 10 day course cultures and sensitivities pending 02/13 Code Status: DNR/DNI Disposition: The patient seems to be progressing well and returning back to his baseline status and will most likely be discharged tomorrow. At this time placement may be an issue with the patient and will follow up with PT in the morning. GI Prophylaxis: H2 clarke VTE Prophylaxis: Theraputic Anticoag with Warfarin Resuscitation Status: DNR/DNI:Do Not Resuscitate/Intubate Skip Lundberg MD February 13, 2017 12:51
[2017-02-13] MEDS ORDERED: Sodium Biphos-Phos 133 mL Enema RECTAL PRN (12:55)
--- NOTE | 2017-02-13 13:45 | NUR ---
NUTRITION ASSESSMENT: ASSESS: Pt is an 86yo M admitted for abd pain and possible SBO. Diet has been advanced to full liquid today, no PO has been recorded yet. No BM or gas has been reported yet. PMHX: bladder ca, HTN, afib LABS: Reviewed. Glu 116, Alb 4.0 MEDS: Reviewed. Colace, Zofran, enema, bacid, bisacodyl GI: 0 BM yet SKIN: no major issues CURRENT WTS: 115.8kg, BMI 31.9kg/m2, IBW 89kg DIET: Full liquid. No PO recorded. EST. NEEDS: Kcals: 2315-2550kcal/day (20-22kcal/kg) Pro: 85-105g/day (1.0-1.2g/kg IBW) NUTRITION DIAGNOSIS: 1.) Inadequate oral intake related to altered gi function as evidence by need for slow advancement of diet and no bm/gas reported x3 days NUTRITION INTERVENTION: 1.) Recommend continue to advance diet as tolerated. 2.) Will continue to monitor for PO intake and possible need for supplementation. MONITOR / EVAL: diet advc, PO, BM, wt, poc, nutrition status. Will continue to monitor per moderate nutrition risk guidelines
--- NOTE | 2017-02-13 13:56 | NUR ---
Agitation/GI Pt is increasingly agitated that they cannot leave. Pt is oriented to person, place and situation most of the time, short term memory losses come and go. Pt has become fixated on leaving, and is getting up constantly trying to leave. Pt is not stable for d/c as they haven't passed gas or had a BM despite flaco, senna, miralax, MOM and prune juice. Pt is refusing suppository and enema at this time. At risk for AMA, may need to consider a sitter for safety r/t fall risk.
--- NOTE | 2017-02-13 15:22 | PCM.CHPMED ---
Subjective Date of Service: February 13, 2017 Provider requesting consult: Skip Lundberg MD Primary Physician: Admitting Physician: Tommy Pollard MD Primary Care Physician: Kar Russo DO Attending Physician: Tommy Pollard MD Chief Complaint: Chief Complaint: Abdominal pain and constipation History of Present Illness: GI consult note 86-old male with A. fib on Coumadin, history of bladder cancer with urostomy, hypertension who presented due to abdominal pain with nausea and one bout of emesis with no bowel movements and 3-4 days. Patient is a poor historian and history is taken mostly from abdomen progress notes. There is at the patient had sharp abdominal pain around the umbilicus and to the right and left flanks. On the day of presentation he was working on a tractor bent over working when he began feeling a sharp crampy abdominal pain. This followed with nausea and emesis 1. Patient states that since admission he has not had a bowel movement and has not passed gas but also denies that he ever had nausea or vomiting. Patient states that he is usually very regular bowel movements this is extremely atypical for him. Patient states that he has never had a colonoscopy and denies any family history of colon cancer. Patient also denies hematochezia /melena, hematemesis, chest pain, shortness of breath, fever, chills, or changes in mental status, however, nursing reports that family says he is disoriented. After admission he was worked up for small bowel obstruction. However, Dr. quiroga does not feel this patient has a small bowel obstruction and the symptoms have resolved without the use of an NG tube. GI consult was sought for colonoscopy versus enema. Review of Systems: See history of present illness PMH Past Medical History Bladder Cancer, Hypertension Atrial fibrillation on coumadin Hx Any Other Health Problems?: YesHx Diabetes: No Surgical History Urostomy partial cystectomy Knee replacement Home Medications Aspirin-Expunged Drug, Do Not Renew! (Aspirin EC-Expunged Drug, Do Not Renew!) 81 Mg Tablet 81 MG PO DAILY Atorvastatin-Expunged Drug, Do Not Renew! (Atorvastatin-Expunged Drug, Do Not Renew!) 20 Mg Tablet 20 MG PO HS Cefuroxime Axetil (Cefuroxime) 250 Mg Tablet 500 MG PO BID Take 500mg twice a day for five days. Furosemide-Expunged Drug, Do Not Renew! (Lasix-Expunged Drug, Do Not Renew!) 40 Mg Tablet 40 MG PO DAILY Lisinopril-Expunged Drug, Do Not Renew! (Lisinopril-Expunged Drug, Do Not Renew! ) 5 Mg Tablet 5 MG PO DAILY Metoprolol Suc-Expunged Drug, Do Not Renew! (Metoprolol Suc-Expunged Drug, Do Not Renew!) 50 Mg Tber 50 MG PO DAILY 1 1/2 tab Valacyclovir HCl-Expunged Drug, Do Not Renew! (Valtrex-Expunged Drug, Do Not Renew!) 1,000 Mg Tablet 1,000 MG PO Q8 Take 1000mg every 8 hours for 5 days. Warfarin Inactive Drug Do Not Use (Coumadin Inactive Drug Do Not Use) 5 Mg Tablet 5 MG PO Thu/Thu Take on Thursday and Thursday. Warfarin Inactive Drug Do Not Use (Coumadin Inactive Drug Do Not Use) 2.5 Mg Tablet 2.5 MG PO 17 Thu,,Thu,Sun Scheduled PRN Docusate Sod-Expunged Drug, Do Not Renew! (Docusate Sod-Expunged Drug, Do Not Renew!) 100 Mg Capsule 100 MG PO BID PRN PRN Take twice a day as needed for constipation. Hydrocod/APAP-Expunged, Do Not Renew! (VICODIN 5/500-Expunged Drug, Do Not Renew ) 1 Each Tablet 1 EACH PO Q4 PRN PRN Take as needed every 4 hours for pain. Allergies: Coded Allergies: No Known Allergies (Unverified , 02/10/17) Family History Family History Poor historian but states that there is no history of colon cancer Social History Hx Alcohol Use: YesAlcoholic Drinks Per Day: 1.5Hx Substance Use: NoHx Tobacco Use: No Smoking Status: Unknown if Ever Smoker Living Arrangement: with Family Exam Vital Signs Vital Sign - Last Date Time Temp Pulse Resp B/P Pulse Ox O2 Delivery O2 Flow Rate FiO2 02/13/17 08:00 37.2 77 18 132/74 92 Room Air Intake and Output 02/12/17 02/12/17 02/13/17 Cumulative From/Thru 15:00 23:00 07:00 02/10/17 17:58 - 02/13/17 06:21 Intake Total 406 ml 860 ml 5404 ml Output Total 400 ml 600 ml 3545 ml Balance 6 ml 260 ml 1859 ml Intake Oral 220 ml 640 ml 1160 ml IV Total 186 ml 220 ml 4244 ml Output Urine Total 400 ml 600 ml 3345 ml Emesis 200 ml Additional Information: General: Patient appears mildly demented, but alert and conversive HEENT: His membranes moist, PERRLA Cardio: Irregularly irregular Respiratory: CTA bilaterally Abdomen: Hypoactive bowel sounds, no guarding present, no rebound tenderness, no tenderness, mild distention Extremities: Positive for edema, moving all 4 extremities Psych: Patient seems to be disoriented; intermittently thinks his at home Neuro: Grossly intact Lab and Diagnostics Result Diagram: 02/12/1772402/12/17724 Assessment & Plan Assessment 86-year-old male who presented with abdominal pain, nausea, one bout of emesis, and constipation that has now reached 5-7 days per patient. Consultation by surgery do not feel that this is a small bowel obstruction, recurrent subjective symptoms support this as the patient has no nausea or vomiting and abdominal pain seems to have decreased significantly without the use of an NG tube. Concerns of the patient reports he is still not passing gas. Patient still does have some discomfort but overall seems to be improved per his own report. Patient was given multiple oral agents today to help move his bowels along without success at this point. If the patient is unable to go by this evening patient should receive a fleet enema and if symptoms still not resolved he should received a second enema one hour afterwards. As the patient has never had a colonoscopy he will need this at some point, however, the patient's INR this morning was about 6 and with an INR this high he cannot undergo colonoscopy. Patient can follow-up with GI within 1 week after discharge and will plan for colonoscopy prep at that time. Thank you for allowing us to participate in the care of this patient Problems: Pain Evaluation: Adequate Pain Control GI Prophylaxis: H2 clarke VTE Prophylaxis: Theraputic Anticoag with Warfarin Resuscitation Status: DNR/DNI:Do Not Resuscitate/Intubate Attending Statement Patient seen and examined. Agree with assessment and plan as per Dr Herrera. Agree with enemas to get bowels evacuated. Continue to hold coumadin. Depending on progress, may be able to d/c home with plans for outpatient colonscopy. Miguel Herrera DO February 13, 2017 15:22 Manfred Gonsales MD February 13, 2017 17:02
[2017-02-13] MEDS ORDERED: LORazepam 1 mg Tablet PO PRN (15:30)
[2017-02-13] MEDS ORDERED: Flumazenil 0.1 mg/mL 5 mL Inj IV ONE (18:48)
--- NOTE | 2017-02-13 19:00 | ABG ---
DateTimeAnalyzed 18:30:00 -_ pH ____7.497 - 7.350 7.450 pCO2 ___28.0__ -mmHg 35.0 45.0 pO2 ___49.9__ -mmHg 70.0 100 HCO3- ___21.5__ -mmol/L 22.0 26.0 ABE ____0.1__ -mmol/L -2.0 2.0 tHb ___16.4__ -g/dL 12.0 18.0 O2Hb ___87.5__ -% 95.0 COHb ____1.3__ -% 1.5 MetHb ____0.8__ -% 0.4 1.5 sO2 ___89.4__ -% 25.0 FIO2 ___21.0__ -% Drawn By lw - Date/Time Notified____ 18:37:00 -_ Liter_Flow ____8.0__ -L/min Oxygen Device 1 __oxymask - Notified By lw - Notified Whom RN - B 756 -mmHg tO2 ___20.2__ -Vol% Stew test _Positive -
--- NOTE | 2017-02-13 19:30 | PCM.PNMED ---
Subjective Date of Service February 13, 2017 Subjective Patient nonverbal, called to the bedside as patient was somnolent. I was called to the bedside as patient had received lorazepam because he had been agitated and threatening to leave and we were not done with the workup. 1 mg of lorazepam the patient was extremely somnolent but doing all right. The patient had an episode of emesis and shortly thereafter his O2 sats dropped. Presumably he is aspirated. Exam Vital Signs Vital Sign - Last Date Time Temp Pulse Resp B/P Pulse Ox O2 Delivery O2 Flow Rate FiO2 02/13/17 08:00 37.2 77 18 132/74 92 Room Air Intake and Output 02/12/17 02/12/17 02/13/17 Cumulative From/Thru 15:00 23:00 07:00 02/10/17 17:58 - 02/13/17 06:21 Intake Total 406 ml 860 ml 5404 ml Output Total 400 ml 600 ml 3545 ml Balance 6 ml 260 ml 1859 ml Intake Oral 220 ml 640 ml 1160 ml IV Total 186 ml 220 ml 4244 ml Output Urine Total 400 ml 600 ml 3345 ml Emesis 200 ml Exam Gen.- Drowsy, poorly responsive to painful stimuli Eyes- open conjunctiva clear, pupils equal nonicteric, positive doll's eyes but patient is keeping his eyes closed ENT- ears normal, nose normal hearing intact Neck- supple/trach midline CVS- RRR no murmur or gallop Lungs- CTA, shallow breath sounds trace wheezes on the right, to GI- NABS/NT soft, urostomy bag full of clark urine in place. Musc- moving 4 no obvious deformity Neuro- cranial nerves II through XII intact to gross examination, nonfocal Skin- warm an no rashes/lesions/wounds noted, diaphoretic Psych-somnolent, after stimuli and Romazicon patient wakes up and swears and is a little bit combated Lab and Diagnostics pH ____7.497 - 7.350 7.450 pCO2 ___28.0__ -mmHg 35.0 45.0 pO2 ___49.9__ -mmHg 70.0 100 HCO3- ___21.5__ -mmol/L 22.0 26.0 ABE ____0.1__ -mmol/L -2.0 2.0 tHb ___16.4__ -g/dL 12.0 18.0 O2Hb ___87.5__ -% 95.0 COHb ____1.3__ -% 1.5 MetHb ____0.8__ -% 0.4 1.5 sO2 ___89.4__ -% 25.0 FIO2 ___21.0__ -% this is actually 10 L nonrebreather Result Diagram: 02/12/1772402/12/17724 X-Rays, CTs and MRIs CT ABDOMEN AND PELVIS WITH CONTRAST IMPRESSION: Dilated bowel loop seen within the midline upper abdomen, probably a loop of colon with large amount of stool. Cannot exclude developing bowel obstruction, including closed-loop obstruction or internal hernia, although the transition point and exact anatomy is unknown. As clinically required, surgical consultation could be obtained. Large left inguinal bowel and fat containing hernia, unchanged. Dictated by: Emerson Hill M.D. on 02/10/2017 at 20:09 Approved by: Emerson Hill M.D. on 02/10/2017 at 20:26 . 12-lead ECG Afib, RBBB, old inferior infarct Assessment & Plan 86 year old man admitted with abdominal pain associated nausea and vomiting. CT scan indicative of likely SBO, UA indicates active UTI. 02/12 I am starting patient on clear liquids and giving him some milk of magnesia if he is otherwise doing well I may start him on a regular diet and give him a Dulcolax suppository in the morning 02/13 stimulate bowel action. Clinically he looks all right and I am hopeful that resolution can be induced gently. 02/13 still no gas or bowel movement advancing diet giving laxatives to maintain oral regimen in the hope that patient may be dischargeable this evening 02/13 second visit call the bedside at 6:30 PM patient poorly responsive, hypoxic please see below. He got a milligram of Ativan became extremely somnolent, throughout the normal shortly thereafter became hypoxemic so he almost certainly aspirated. I spoke with his daughter, with dementia was at the bedside. 60 minutes plus critical care time #Acute metabolic encephalopathy-likely secondary to lorazepam 1 mg, it did easily reverse with Romazicon patient still somnolent when he was arousable he was combative #Acute respiratory failure/hypoxemia-presumed aspiration, patient being moved to PCC -Starting Unasyn -High flow oxygen, albuterol nebs every -Checking CMP, CBC stat and in a.m. and troponins every 4 and getting an EKG. -Preliminary read on CXR I looked at it myself pretty unremarkable -We will also check a BNP and give a dose of furosemide #Dark urine-repeat urinalysis possibly this is blood with elevated INR although patient's HDL is stable #Afib with RVR, POA, chronic. Active-INR 6.3 02/13 hold warfarin today no sign of bleeding I am not using vitamin K yet -Continue home Metoprolol 50 mg PO daily -Warfarin dosing per pharmacist #Small bowel obstruction, POA, acute. Active -Dr. Mann (general surgery), following, stimulate bowels with suppository and if that is unsuccessful perhaps enema later today. 02/13. Will d/w GI director compensation to determine f/u plan. -NPO, starting clear liquid diet 02/12 advancing to full liquids 02/13 - normal saline at 100 ml/hr hep-locked 02/12 patient tolerating clear liquids #Left inguinal hernia-we will revisit whether this is actually tender and required any intervention however general surgery is following.. #Dementia/sundowning-I looked at the patient's EKG personally today 02/12 his QTC is greater than 500 and I am not anxious to start him on any QT prolonging agents such as quetiapine Orser Zyprexa that might settle him down at this point in time. #HTN, POA, chronic. Active -Metoprolol as above -Holding home Lasix while giving IVF -Continue home Lisinopril #Uncomplicated urinary tract infection-patient has urostomy protruding from the right side of his abdomen, urine is dark in goal with a little bit of sediment today. 02/12 -Urine culture pending -Ceftriaxone 2g Q24 02/11-02/13. Changing to Keflex 02/13-20 4 a 10 day course cultures and sensitivities pending 02/13 Code Status: DNR/DNI Disposition: The patient seems to be progressing well and returning back to his baseline status and will most likely be discharged tomorrow. At this time placement may be an issue with the patient and will follow up with PT in the morning. GI Prophylaxis: H2 clarke VTE Prophylaxis: Theraputic Anticoag with Warfarin Resuscitation Status: DNR/DNI:Do Not Resuscitate/Intubate Time spent 60 minutes Skip Lundberg MD February 13, 2017 19:30
[2017-02-13] MEDS ORDERED: Ampicillin-Sulbactam Inj 3,000 MG in 0.9% Sodium Chloride 100 ML IV SCH (19:34)
[2017-02-13] MEDS ORDERED: Furosemide 10 mg/mL 4 mL Inj IVPUSH ONE (19:35)
--- NOTE | 2017-02-13 20:01 | NUR ---
Sedation/PCC Transfer Pt became sedated after ativan dose, very difficult to rouse. Was hyperventilating, but VSS on RA. Pt then began to have increasing O2 needs, then had emesis causing aspiration concern, Dr Lundberg paged and responded, ordered ABG and CXR. RT came to draw ABG, CXR done. Pt received flumazenil 0.1mg, became slightly more rousable. Dr Lundberg wanted pt on highflow o2, patients needs were unable to be met on [facility] so transfer to [facility] became necessary. Pt transferred to [facility], report given to ash PFEIFFER.
[2017-02-13 20:27] LABS: Mean Corpuscular Hemoglobin 31.9 pg (27.0-35.0); Mean Corpuscular Volume 95.6 fL (81-100)
[2017-02-13 20:31] LABS: APPEARANCE,URINE CLEAR (CLEAR,HAZY); COLOR,URINE YELLOW (YELLOW); OCCULT BLOOD,URINE LARGE (NEGATIVE)
[2017-02-13 20:32] LABS: ICTOTEST,URINE POSITIVE (Negative)
[2017-02-13 20:41] LABS: Magnesium 2.2 mg/dL (1.6-2.6); Phosphorus 2.1 mg/dL (2.5-4.9)
[2017-02-13 20:44] LABS: Platelet Count 73 bil/L (150-400)
[2017-02-13 20:45] LABS: BASOPHILS % (AUTO) 0.1 % (0-3); EOSINOPHILS % (AUTO) 0.3 % (0-5); MONOCYTES % (AUTO) 8.5 % (4-12); NEUTROPHILS % (AUTO) 88.8 % (40-74)
[2017-02-13 20:59] LABS: TROPONIN T 0.033 ug/L (0.0-0.011)
[2017-02-13] MEDS ORDERED: Phytonadione (Adult) 10 MG in Dextrose 5%-Pha MIX 50 ML IV ONE (21:30)
--- NOTE | 2017-02-13 21:30 | DRSVH ---
PROCEDURE: CT ABDOMEN AND PELVIS WITHOUT CONTRAST ([id number]) INDICATIONS: Pneumoperitoneum on chest x-ray. TECHNIQUE: Noncontrast 5 mm thick sections acquired from the diaphragms to the symphysis. 5 mm coronal and sagi ttal reformats were then performed. For radiation dose reduction, the following was used: automated exposure control, adjustment of mA and/or kV according to patient size. COMPARISON: [facility], CT, CT ABD [facility] CON[facility]13/2017, 18:31. FINDINGS: Image quality: There is motion artifact as well as metallic streak artifact. ABDOMEN: Lung bases: There are small bilateral pleural effusions with consolidation in the lower lobes, right greater left as well as the inferior left lingula and right middle lobes. Heart size is enlarged. Solid organs: Noncontrast evaluation of the liver demonstrates no definite focal lesions. The spleen is normal in size. Gallbladder is nondistended with small gallstones present. There is mild atroph y of the pancreas. No adrenal nodules. Kidneys demonstrate no hydronephrosis. There are numerous b ilateral renal cysts. Peritoneum and bowel: There is a moderate amount of pneumoperitoneum predominantly within the upper a bdomen. There is a small amount of perihepatic free fluid also present. There is marked fluid diste ntion of the stomach. There is also a focally dilated segment of small bowel in the right upper quad rant. Remainder of the small bowel demonstrates mild fluid distention. Bowel sutures are demonstrat ed in the right lower quadrant as well as an ileostomy. There is segmental wall thickening of the si gmoid colon consistent with a nonspecific colitis. 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 Nodes and vessels: No retroperitoneal or mesenteric adenopathy by size criteria. Aorta and inferior vena cava are normal in caliber. Miscellaneous: No ventral hernias. PELVIS: Genitourinary: Bladder wall thickness is normal. Miscellaneous: There is a large left anal hernia containing a segment of the sigmoid colon without ev idence of associated bowel obstruction. No inguinal adenopathy. Numerous surgical clips are demonstr ated in the pelvis with associated streak artifact. Bones: No suspicious bony lesions. No vertebral body compression fractures. IMPRESSION: 1. Moderate amount of pneumoperitoneum demonstrated in the upper abdomen with a small amount of jerry hepatic free fluid. Findings are consistent with sequelae of viscous perforation, likely from the st omach or a dilated loop of small bowel in the right upper quadrant. Findings discussed with Dr. Jenna huggins on 02/13/17 at 9:15 PM. 2. Markedly dilated loop of small bowel in the right upper quadrant increased compared to the prior CT findings are suspicious for a segmental obstruction possibly from a closed loop. 3. Segmental wall thickening in the sigmoid colon consistent with nonspecific colitis. 4. Large left inguinal hernia containing a loop of sigmoid colon without evidence of associated hillary l obstruction. 5. Bilateral pleural effusions with bibasilar consolidation suspicious for aspiration pneumonia. Dictated by: Duke Proctor M.D. on 02/13/2017 at 21:17 Approved by: Duke Proctor M.D. on 02/13/2017 at 21:29
--- NOTE | 2017-02-13 21:49 | ABG ---
DateTimeAnalyzed 21:44:52 -_ pH ____7.475 - 7.350 7.450 pCO2 ___30.7__ -mmHg 35.0 45.0 pO2 ___61.1__ -mmHg 70.0 100 HCO3- ___22.5__ -mmol/L 22.0 26.0 ABE ___-0.5__ -mmol/L -2.0 2.0 tHb ___15.8__ -g/dL 12.0 18.0 O2Hb ___92.5__ -% 95.0 COHb ____1.8__ -% 1.5 MetHb ___-0.2__ -% 0.4 1.5 sO2 ___94.0__ -% 25.0 FIO2 ___21.0__ -% Drawn By MD - Date/Time Notified____ 21:49:00 -_ Spontaneous_RR 33 -b/min Liter_Flow ___15.00_ -L/min Oxygen Device 1 NON REBREATHER - Notified By MD - Notified Whom RN J.KUDIA - B 755 -mmHg K+ ____4.2__ -mmol/L tO2 ___20.4__ -Vol% Stew test _Positive -
--- NOTE | 2017-02-13 22:48 | NUR ---
Transfer Pt transferred to CCU. Pt alert when touched and spoken to. Becoming more agitated, pulling off equipment. Transferred via own bed with family at bedside. Pt on MP30.
[2017-02-13] MEDS ORDERED: Piperacillin-Tazo 3.375 Gm Inj 3.375 GM in Dextrose 5% Minibag Plus 50 ML IV SCH (22:55)
[2017-02-14] VITALS (14 sets, daily range): BP systolic 102–125; BP diastolic 63–85; PULSE 57–127; RESP 8–37; O2SAT 77–98
[2017-02-14] MEDS: HYDROmorphone 0.5 mg/0.5 mL iSecure Syringe IVPUSH PRN (00:22)
--- NOTE | 2017-02-14 02:42 | PROG NOTE ---
[address] [address] PROGRESS NOTE PATIENT: DILIP NGUYEN : 1930 MR#: [id number] ADMIT: 02/10/2017 JOB ID: [id number] DATE: 02/13/2017 SUBJECTIVE: I am asked to see the patient this evening urgently because of some development of findings throughout the day. He was seen originally by Dr. Ilan Mann from our team, who felt that he had a transverse colon problem of unclear etiology, possible bowel obstruction, and recommended conservative treatment. Throughout the day today, he has become progressively obtunded. He also had an episode of emesis followed by desaturation. An abdominal KUB was obtained, which showed some free intra-abdominal air, and following that, he had a stat CT of the abdomen and pelvis. The CT scan shows a moderate amount of pneumoperitoneum, a small amount of perihepatic free fluid. The markedly dilated loop of bowel in the right upper quadrant was increased from prior CT, there is segmental thickening of the sigmoid colon, nonspecific, and there was a large left inguinal hernia containing sigmoid colon, without evidence of bowel obstruction. There were bilateral pleural effusions and bibasilar consolidation, concerning for aspiration pneumonia. OBJECTIVE: Temperature 37.6, pulse 120, blood pressure 110/78. General: He is obtunded, poorly arousable. He squeezes his 's hand intermittently. Chest: He has coarse breath sounds bilaterally. Heart: Irregularly irregular. No tachycardia, no murmurs. Abdomen is distended and tympanitic. He has diffuse involuntary guarding and rigidity of the abdomen. He has a low midline scar and a right lower quadrant urostomy. He has a large left groin hernia. There is no erythema of the abdominal wall. LABORATORIES: White blood cell count is 14.5, hematocrit 47.9, platelets 73. Creatinine 1.57, glucose 101, lactate 2.8, total bilirubin 8.6, AST 2953, ALT 1765, alk phosphatase 223. ProBNP 7174. Albumin 3.4. INR 6.32. ASSESSMENT/PLAN: An 86-year-old man with multisystem organ failure with acute renal failure, acute respiratory failure, acute toxic encephalopathy, evidence of shock liver with massively elevated transaminases, bilirubin, elevated lactate. Personally, I think his perforated viscus has been going on for some time, and review of his previous scans makes me wonder if the structure that was described as a dilated loop of bowel in the right upper quadrant was actually a walled-off perforated abscess all along. Nonetheless, he is severely ill, and I suspect that he will not survive this illness. I have spoken very frankly with his family. He is DNR/DNI, but on the other hand, they state that he would want to be aggressive of life-saving measures were available. He is coagulopathic, and 6 units of FFP have been ordered to be transfused. In the meantime, the family will make a decision. I had a very jaycee discussion with them. Without surgical treatment, he certainly will not survive. With surgical treatment, I suspect that he probably will not survive this illness. Surgical treatment most likely would lead to a long, complicated, and drawn out course, mechanical ventilation dependence and almost certain ultimate demise any way. The family will give it some serious thought while we get FFP available, and I will discuss it with them again in a little while.
[2017-02-14 03:22] LABS: BASOPHILS % (AUTO) 0.2 % (0-3); EOSINOPHILS % (AUTO) 1.6 % (0-5); MONOCYTES % (AUTO) 11.2 % (4-12); Mean Corpuscular Volume 84.2 fL (81-100); NEUTROPHILS % (AUTO) 58.3 % (40-74); Platelet Count 202 bil/L (150-400)
[2017-02-14 05:54] LABS: BASOPHILS % (AUTO) 0.1 % (0-3); EOSINOPHILS % (AUTO) 0 % (0-5); MONOCYTES % (AUTO) 3.5 % (4-12); Mean Corpuscular Hemoglobin 32.2 pg (27.0-35.0); Mean Corpuscular Volume 95.5 fL (81-100); NEUTROPHILS % (AUTO) 94.7 % (40-74); Platelet Count 61 bil/L (150-400)
--- NOTE | 2017-02-14 06:00 | NUR ---
Respiratory Assumed care of pt at 2245 after moved to CCU due to worsening respiratory status. Pt was placed on High Flow NC at 50 L 100% FIO2. Pt is confused and pulling on IV tubing and wires. Pt was placed on soft restraints for safety per orders. 2 units of FFP transfused and pt tolerated well. Surgeon at the bedside answering questions. Family decided to place on comfort care. Family ok with using High-flow NC at this time. They would like to talk to palliative care team in am. Pt was medicated with Dialudid 0.5 mg x1. He appears comfortable at this time. Pt was downgraded to PCC/ Tele. No further orders at this time.
[2017-02-14 06:54] LABS: TROPONIN T 0.038 ug/L (0.0-0.011)
[2017-02-14 06:58] LABS: INR 1.9 ratio
[2017-02-14] MEDS: Sodium Chloride LOK Flush 10 mL Syringe IVFLUSH SCH ×2 (08:30→16:30)
[2017-02-14] MEDS ORDERED: Morphine Inj 1,000 MG in 0.9% Sodium Chloride 30 ML IV PRN (08:35)
[2017-02-14] MEDS: 0.9% Sodium Chloride 1,000 ML IV SCH (08:47)
[2017-02-14] MEDS ORDERED: Morphine 100 mg/100 mL NS 100 MG in IV Premix 1 EACH IV SCH ×2 (08:55→09:00)
[2017-02-14] MEDS ORDERED: Morphine 2 mg/mL Syringe Loading/bolus dose IVPUSH PRN (08:55)
--- NOTE | 2017-02-14 11:49 | PROG NOTE ---
[address] [address] PROGRESS NOTE PATIENT: DILIP NGUYEN : 1930 MR#: [id number] ADMIT: 02/10/2017 JOB ID: [id number] DATE: 02/14/2017 SUBJECTIVE: Events for the previous 24 hours reviewed. I discussed his case with Dr. Gonsales, reviewed decision for comfort care with his daughter Edilma. He will remain comfort care.
--- NOTE | 2017-02-14 13:31 | PROG NOTE ---
[address] [address] PROGRESS NOTE PATIENT: DILIP NGUYEN : 1930 MR#: [id number] ADMIT: 02/10/2017 JOB ID: [id number] DATE: 02/14/2017 SUBJECTIVE: I was first asked to see the patient yesterday afternoon to consider him for colonoscopy. The patient had presented with rather sudden episode of abdominal pain and his initial CAT scan was very difficult to interpret. I reviewed the CAT scan in detail yesterday afternoon and agreed that it was very difficult to interpret. I spent some time on the telephone with the scan up and discussed it with Dr. Emerson Hill. The identity of the air-filled structure in the mid upper abdomen was simply not clear. It was suspected to be potentially colon, but to my eye, I could see the transverse colon draped across his abdomen in a decompressed and somewhat normal fashion. Interestingly, the patient had not been complaining of pain by report and was eager to be discharged home. That said, he still had not been passing stool or flatus even in the context of having been given oral laxatives (MiraLAX, senna, Dulcolax suppository). Because he had not been considered indicated for surgical intervention, the GI consultation was called in with a plan to potentially get his bowel moving and perhaps then plan for an outpatient endoscopic evaluation after his INR drifted back down into a much safer range. I spoke about the case with Dr. Ilan Mann yesterday afternoon as well in essence to confirm that he did not feel he was a surgical candidate and thus fine tune some alternative investigation plan. It does not come out in my sign off comments on Dr. Miguel Herrera's note, because right at that moment that I was rounding on our GI patients, the hospital shut down the [facility] and the note was signed off with the briefest of comments. At the time of my bedside evaluation in the evening, I could not get any meaningful clinical information from the patient directly as he had been given a dose of IV Ativan and became very somnolent. My bedside encounter with the patient initially was therefore very brief to allow the nursing staff and primary team to address what initially appeared to be an excessive response to the benzodiazepine. From there, however it sounds like the patient had progressive decompensation/deterioration and repeat imaging was accomplished and revealed the presence of free air consistent with a viscus perforation. The patient was initially placed on IV antibiotics. Dr. Lauren covering for surgery evaluated the patient and did not feel that he was likely going to survive with or without surgical intervention at that point. Dr. Lauren thought that the unusual initial CAT scan could possibly have represented a walled-off perforation from the very beginning. This morning, I was able to have a conversation with the patient. He surprisingly denied any abdominal pain. He was not feeling nauseated. I discussed the gravity of the situation and his prognosis once again. All of that said, I encouraged nursing staff to hold off on any morphine drip at the moment (comfort care measures have been initiated) in that the patient was not experiencing pain and still had family members to come in and see him, including his . We had a brief discussion about his sonia. The patient wanted me to pray with him this morning and I was honored to do so. OBJECTIVE: The patient is a little tachycardic in the 110s. He is afebrile. Blood pressure 111/63. He is on high-flow oxygen with sats in the 98% range. He is conversational and appropriate, but had limited insight into his current disease process. He recognized family members when they approached at the bedside and was happy to see them. His abdomen feels firm and distended but not tense at present. LABORATORY DATA: White count 14.7, hemoglobin 15.7, platelets have fallen down to 61. INR was brought back down from 6.32 to 1.90. His lactate has improved slightly. His creatinine is up to 1.72. His troponins are positive. He has developed shock liver with an impressive transaminitis and bilirubin elevation. ASSESSMENT AND PLAN: An 86-year-old male with a perforated viscus. He has been deemed not a great candidate for surgery based on projected morbidity and mortality. Comfort care measures have therefore been initiated. Note: Please do not assess a physician charge for this visit. This is a no-charge physician note.
--- NOTE | 2017-02-14 13:54 | NUR ---
[facility] signed
--- NOTE | 2017-02-14 15:53 | NUR ---
Comfort Care Patient placed on comfort care and per MD request, once family arrived, a Morphine gtt was initiated. Morphine gtt has been titrated up to 4 mg/hr currently because patient continues with agitation, shoulder pain, and a RR up to 28. Last RR was 24. RT is titrating down the high flow O2. Sats remain 94%. Patient wakes intermittently agitated, pulling at lines and wanting to get OOB/confused. Urostomy is draining a brown colored urine. No further stool. Patients mouth has been swabbed/moistened frequently. Family is at bedside. Monitoring closely. Addendum: 02/14/17 at 1835 by HAYDEN MENDEZ RN Morphine gtt at 5 mg/hr. RR, 16. Patient resting much more comfortably. Family content.
--- NOTE | 2017-02-14 20:20 | PCM.PNMED ---
Subjective Date of Service February 14, 2017 Subjective Family asked to make the patient comfort care only. Exam Vital Signs Vital Sign - Last Date Time Temp Pulse Resp B/P Pulse Ox O2 Delivery O2 Flow Rate FiO2 02/14/17 19:55 102 12 85 high flow 30 02/14/17 08:20 50 02/14/17 08:00 36.9 111/63 Intake and Output 02/13/17 02/13/17 02/14/17 Cumulative From/Thru 14:59 22:59 06:59 02/10/17 17:58 - 02/14/17 06:50 Intake Total 500 ml 1443 ml 7347 ml Output Total 250 ml 175 ml 3970 ml Balance 250 ml 1268 ml 3377 ml Intake Oral 500 ml 0 ml 1660 ml IV Total 963 ml 5207 ml FFP 480 ml 480 ml Output Urine Total 250 ml 175 ml 3770 ml Emesis 200 ml Exam PHYSICAL EXAM: Limited secondary to comfort measures only GENERAL: In bed, looks comfortable. HEAD: atraumatic, normocephalic EYES: able to open and close eyelids SKIN: Skin color normal, turgor decreased. No visible rashes or lesions. EAR, NOSE, MOUTH, THROAT: Lips are dry, pink, no lesions. Ears normal appearance, no lesions. NECK: no jugulovenous distention REVIEW OF SYSTEMS: Unable to obtain, patient is not comfort measures only. Patient looks comfortable IVs and Medications Medications Reviewed: Medications were reviewed in detail Lab and Diagnostics Result Diagram: 02/14/17 0540 02/14/17 0310 X-Rays, CTs and MRIs CT ABDOMEN AND PELVIS WITH CONTRAST IMPRESSION: Dilated bowel loop seen within the midline upper abdomen, probably a loop of colon with large amount of stool. Cannot exclude developing bowel obstruction, including closed-loop obstruction or internal hernia, although the transition point and exact anatomy is unknown. As clinically required, surgical consultation could be obtained. Large left inguinal bowel and fat containing hernia, unchanged. Dictated by: Emerson Hill M.D. on 02/10/2017 at 20:09 Approved by: Emerson Hill M.D. on 02/10/2017 at 20:26 . 12-lead ECG Afib, RBBB, old inferior infarct Assessment & Plan 86 year old man admitted with abdominal pain associated nausea and vomiting. CT scan indicative of likely SBO, UA indicates active UTI. 02/12 I am starting patient on clear liquids and giving him some milk of magnesia if he is otherwise doing well I may start him on a regular diet and give him a Dulcolax suppository in the morning 02/13 stimulate bowel action. Clinically he looks all right and I am hopeful that resolution can be induced gently. 02/13 still no gas or bowel movement advancing diet giving laxatives to maintain oral regimen in the hope that patient may be dischargeable this evening 02/13 second visit call the bedside at 6:30 PM patient poorly responsive, hypoxic please see below. He got a milligram of Ativan became extremely somnolent, throughout the normal shortly thereafter became hypoxemic so he almost certainly aspirated. I spoke with his daughter, with dementia was at the bedside. 60 minutes plus critical care time 02/14/17 patient's family asked to make him comfort care only. Acute metabolic encephalopathy, Acute respiratory failure/hypoxemia-presumed aspiration, Small bowel obstruction , Afib with RVR,Left inguinal hernia, Dementia/sundowning, HTN,Uncomplicated urinary tract infection - Continue with comfort measures only Code Status: DNR/DNI GI Prophylaxis: H2 clarke VTE Prophylaxis: Other (comfort measures) Resuscitation Status: DNR/DNI:Do Not Resuscitate/Intubate Vinayak Boyce MD February 14, 2017 20:20
--- NOTE | 2017-02-14 22:02 | NUR ---
Respirations Patient's son came into hallway to notify nursing that he feels the patient is "shallowing out." Patient respiratory rate 8, SpO2 77 on high flow at 35L O2 and 30% FiO2. Heart rate slowing into the 40s and 50s. Patient is lying in bed and appears at peace. Daughter at bedside. O2 monitoring turned off. Advised family to call if they need anything. Morphine gtt unchanged. Continue to monitor.
--- NOTE | 2017-02-15 01:09 | NUR ---
Patient's family member notified nurse at 2215 that he believed the patient had passed. Assessed patient, found no apical pulse or respirations with 1 minute of auscultation. Family at bedside notified of patient's passing and provided with ample time and privacy with the patient. End of life paperwork and documentation completed. Patient cleaned and prepared for transfer. Security [place] [facility]
--- NOTE | 2017-02-15 14:28 | PCM.DC.MEX ---
Discharge Summary Date of Service February 02, 2017 Feb 14 2017 Dates of Hospitalization Date of Hospital Admission February 10, 2017 at 23:01 Date of Expiration: February 14, 2017 Time of Expiration: 22:15 Providers: Admitting Physician: Tommy Pollard MD Primary Care Physician: Kar Russo DO Attending Physician: Tommy Pollard MD Diagnosis at Time of Principle Diagnosis: Sepsis, acute hypoxic respiratory failure, acute renal failure, acute toxic/metabolic encephalopathy, evidence of shock liver with massively elevated transaminases, bilirubin, elevated lactate, elevated proBNP 7174, hyponatremia, perforated viscus, SBO. Secondary Diagnosis: A-fib, HTN, Hyponatreima, Elevated Troponin, Consultations Surgery, Gastroenterology Procedures XRay, CTs & MRIs CT 02/10/17 IMPRESSION: Dilated bowel loop seen within the midline upper abdomen, probably a loop of colon with large amount of stool. Cannot exclude developing bowel obstruction, including closed-loop obstruction or internal hernia, although the transition point and exact anatomy is unknown. As clinically required, surgical consultation could be obtained. XR 02/12/17 IMPRESSION: Gaseous distention of bowel within the midabdomen likely the colon similar to prior examination. Developing obstruction cannot be excluded and close clinical correlation and followup is recommended. Large left inguinal bowel and fat containing hernia, unchanged. CT 02/13/2017 1. Moderate amount of pneumoperitoneum demonstrated in the upper abdomen with a small amount of perihepatic free fluid. Findings are consistent with sequelae of viscous perforation, likely from the stomach or a dilated loop of small bowel in the right upper quadrant. Findings discussed with Dr. Reyes on 02/13/17 at 9:15 PM. 2. Markedly dilated loop of small bowel in the right upper quadrant increased compared to the prior CT findings are suspicious for a segmental obstruction possibly from a closed loop. 3. Segmental wall thickening in the sigmoid colon consistent with nonspecific colitis. 4. Large left inguinal hernia containing a loop of sigmoid colon without evidence of associated bowel obstruction. 5. Bilateral pleural effusions with bibasilar consolidation suspicious for aspiration pneumonia. . ECG 12 Lead Afib, RBBB, old inferior infarct Hospital Course Jai Whitehead, an 86 year old gentleman with a PMH of Afib (on coumadin), bladder cancer(s/p chemotherapy and partial resection), HTN presented to the hospital with 1 day history of abdominal pain. Patient related that he was working on a tractor and was in an awkward position wrenching on a stubborn bolt when he gradually manifested a sharp, crampy abdominal pain in a band about his midsection around the level of the umbilicus. Pain was associated with nausea. Patient was brought to the emergency department. In the ED the patient underwent CT of the abdomen which revealed a likely though not definite SBO, and urinalysis revealed signs of active UTI. Initially patient was diagnosed with small bowel obstruction. Surgery was consulted and recommended medical management with close observation. Patient was treated with nothing by mouth, IV ceftriaxone, IV Dilaudid for pain. His abdominal pain was improving, patient was started on liquid diet. Patient was also diagnosed with urinary tract infection which was treated with ceftriaxone IV. Despite resuming liquid diet and several motility promoting agents patient did not have a bowel movement , he was not passing gas either. 02/13/17 Gastroenterology was consulted and advised - "... Patient was given multiple oral agents to help move his bowels along without success at this point. If the patient is unable to go by this evening patient should receive a fleet enema and if symptoms still not resolved he should received a second enema one hour afterwards. As the patient has never had a colonoscopy he will need this at some point, however, the patient's INR this morning was about 6 and with an INR this high he cannot undergo colonoscopy. Patient can follow-up with GI within 1 week after discharge and will plan for colonoscopy prep at that time." On 02/13/17, around 6 PM, patient became obtunded and hypoxic. He received 1 mg of Ativan IV prior to this episode and initially his worsening in mental status was considered to be secondary to Ativan. Attempt was made to reverse benzodiazepine with Romazicon but patient was still somnolent,when he was arousable he was combative. Apparently, patient vomited and aspirated. His oxygen saturation dropped. He was diagnosed with acute respiratory failure with hypoxemia secondary to aspiration, started on high flow oxygen and respiratory treatments, started on Unasyn IV, and was transferred to PCU. An abdominal KUB was obtained, which showed some free intra-abdominal air, and following that, he had a stat CT of the abdomen and pelvis. The CT scan showed a moderate amount of pneumoperitoneum, a small amount of perihepatic free fluid. The markedly dilated loop of bowel in the right upper quadrant was increased from prior CT, there was segmental thickening of the sigmoid colon, nonspecific, and there was a large left inguinal hernia containing sigmoid colon, without evidence of bowel obstruction. There were bilateral pleural effusions and bibasilar consolidation, concerning for aspiration neumonia. Patient became septic, developed fever, leukocytosis, multisystem organ failure with acute renal failure, acute respiratory failure, acute toxic encephalopathy , evidence of shock liver with massively elevated transaminases, bilirubin, elevated lactate, elevated pro-BNP 7174, hyponatremia. Patient was diagnosed with perforated viscus. Surgical service and gastroenterology were following the patient. Dr. Lauren, covering for surgery at night, evaluated the patient and did not feel that he was likely going to survive with or without surgical intervention at that point. Dr. Lauren thought that the unusual initial CAT scan could possibly have represented a walled-off perforation from the very beginning. Dr. Mann, Dr. Gonsales reviewed the case in the morning and discussed with the family poor prognosis, goals of care, plan of care. Patient and this family made the decision to proceed with comfort measures only. I also had a discussion with the family regarding goals of care and plan of care. Family members confirmed that they would like to continue with comfort measures. After all patient's family members came to see him, family asked to d /c Oxygen, patient was started on IV morphine drip for comfort, and his oxygen support was gradually discontinued. Patient peacefully on February 15 at 10:15 PM. Vinayak Boyce MD February 15, 2017 14:28 Test 02/10/17 19:02 02/10/17 21:02 02/12/17 07:25 02/13/17 18:18 Lipase 56U/L (13-60) Urinalysis Comment None Procalcitonin 0.11ng/mL (0.00-0.08) Urine Color Yellow (YELLOW) Urine Appearance Clear (CLEAR,HAZY) Urine pH 7.0 (5.0-8.0) Urine Specific [place] 1.021 (1.003-1.035) Urine Protein >300mg/dL (NEG,TRACE) Urine Glucose (UA) Negativemg/dL (NEGATIVE) Urine Ketones Tracemg/dL (NEGATIVE) Urine Occult Blood Large (NEGATIVE) Urine Nitrite Positive (NEGATIVE) Urine Bilirubin Large (NEGATIVE) Urine Ictotest Positive (Negative) Urine Urobilinogen 2.0mg/dL (NORMAL) Urine Leukocyte Esterase Trace (NEGATIVE) Urine RBC 3-10/hpf (0-2) Urine WBC 6-10/hpf (0-5) Urine Epithelial Cells Few/hpf (NONE-MOD) Urine Crystals Amorphous urates (NONE Urine Bacteria None/hpf (NONE-FEW) Urine Hyaline Casts None/lpf (NONE) Urine Granular Casts None seen (NONE SEEN) Urine Waxy Casts None seen (NONE SEEN) Urine Red Blood Cell Casts None seen (NONE SEEN) Urine White Blood Cell Casts None seen (NONE SEEN) Urine Mucus Present (None Seen) Urine Trichomonas None seen (NONE SEEN) Urine Yeast None (NONE SEEN) Urine Culture Reflexed Indicated Test 02/13/17 20:00 02/13/17 23:18 02/14/17 03:10 02/14/17 05:40 Phosphorus Level 2.1mg/dL (2.5-4.9) Magnesium Level 2.2mg/dL (1.6-2.6) Pro-B-Type Natriuretic Peptide 7174pg/mL (0-486) Lactic Acid Level 2.3mmol/L (0.4-2.0) Prothrombin Time 20.6sec (8.1-12.5) Prothromb Time International Ratio 1.90ratio Sodium Level 133mEq/L (134-144) Potassium Level 4.5mEq/L (3.5-5.2) Chloride Level 96mEq/L (97-108) Carbon Dioxide Level 18mmol/L (18-29) Blood Urea Nitrogen 43mg/dL (8-27) Creatinine 1.72mg/dL (0.76-1.27) Estimat Glomerular Filtration Rate 40mL/min (>59) Glucose Level 86mg/dL (60-99) Calcium Level 9.7mg/dL (8.5-10.1) Total Bilirubin 9.3mg/dL (0.0-1.2) Aspartate Amino Transf (AST/SGOT) 1998U/L (0-50) Alanine Aminotransferase (ALT/SGPT) 1455U/L (0-44) Alkaline Phosphatase 231U/L (25-160) Troponin T 0.038ug/L (0.0-0.011) Total Protein 6.0g/dL (6.4-8.4) Albumin 3.1g/dL (3.4-5.0) White Blood Count 14.7th/mm3 (3.8-10.1) Red Blood Count 4.88mil/mm3 (4.40-5.80) Hemoglobin 15.7g/dL (13.8-17.2) Hematocrit 46.6% (41.0-50.0) Mean Corpuscular Volume 95.5fL (81-100) Mean Corpuscular Hemoglobin 32.2pg (27.0-35.0) Mean Corpuscular Hemoglobin Concent 33.7% (32.0-37.0) Red Cell Distribution Width 14.8% (12.3-15.4) Platelet Count 61bil/L (150-400) Neutrophils (%) (Auto) 94.7% (40-74) Lymphocytes (%) (Auto) 1.0% (14-46) Monocytes (%) (Auto) 3.5% (4-12) Eosinophils (%) (Auto) 0% (0-5) Basophils (%) (Auto) 0.1% (0-3) Test 02/14/17 16:45 Total Creatine Kinase 768U/L (21-232) Vinayak Boyce MD February 15, 2017 14:28
--- NOTE | 2017-03-09 12:15 | DRSVH ---
This report includes an Addendum and supersedes previous reports for this exam. CORRECTED ACCOUNT AND ACCESSION/PLACER NUMBERS ON 02/23/17 PROCEDURE: X-RAY CHEST ONE VIEW, PORTABLE ([id number]) INDICATIONS: acute respiratory failure TECHNIQUE: One view of the chest was acquired. COMPARISON: [facility], CT, CT ABD PELVIS W CON, 02/10/2017, 19:51. [facility], CR, XR KUB, 02/12/2017, 8:20. [facility], CR, CHEST 2VW, 10/24/2011, 21:21. FINDINGS: Surgical changes and devices: None. Lungs and pleura: There are low lung volumes with medial bibasilar opacities consistent with consoli dation, atelectasis, or consolidation. There are probable small bilateral pleural effusions. No pne umothorax. Mediastinum: Mediastinal contours appear prominent likely due to technique and low volumes. Heart s ize is mildly enlarged. Bones and chest wall: There is intra-abdominal free air within the visualized upper abdomen. No osorio picious bony lesions. IMPRESSION: 1. Pneumoperitoneum within the visualized upper abdomen. Findings likely reflect bowel perforation. 2. Low lung volumes with medial bibasilar consolidation, atelectasis, or aspiration. Dictated by: Duke Proctor M.D. on 02/13/2017 at 19:39 Approved by: Duke Proctor M.D. on 02/13/2017 at 19:44 ADDENDUM: Findings discussed with Dr. Reyes on 02/13/17 at 7:45 PM. Dictated by: Duke Proctor M.D. on 02/13/2017 at 19:55 Approved by: Duke Proctor M.D. on 02/13/2017 at 19:55
== END 2017-02-14 22:15 | disposition expired | DRG 393 ==
LOC: EDBD 17:49 → SED 17:49 → EDUNIT# 17:49 → OBSVTOIN 23:01 → MOC 23:01 → PCC 02-13 19:57 → CCU 02-13 22:27 → PCC 02-14 03:56
PROVIDERS: ADMIT Hospitalist; ATTEND Hospitalist
PROC: 4A033R1 Measurement of Arterial Saturation, Peripheral, Percutaneous Approach (ICD-10-PCS; principal; 2017-02-13)
PROC: 30233K1 Transfusion of Nonautologous Frozen Plasma into Peripheral Vein, Percutaneous Approach (ICD-10-PCS; 2017-02-13)
PROC: 30233K1 Transfusion of Nonautologous Frozen Plasma into Peripheral Vein, Percutaneous Approach (ICD-10-PCS; 2017-02-14)
DX: K63.1 Perforation of intestine (nontraumatic) (principal); G93.41 Metabolic encephalopathy; J96.01 Acute respiratory failure with hypoxia; J69.0 Pneumonitis due to inhalation of food and vomit; K72.00 Acute and subacute hepatic failure without coma; A41.9 Sepsis, unspecified organism; R65.20 Severe sepsis without septic shock; K56.60 Unspecified intestinal obstruction; N39.0 Urinary tract infection, site not specified; F05 Delirium due to known physiological condition; N17.9 Acute kidney failure, unspecified; E87.1 Hypo-osmolality and hyponatremia; I48.91 Unspecified atrial fibrillation; I10 Essential (primary) hypertension; Z79.01 Long term (current) use of anticoagulants; Z66 Do not resuscitate; B96.20 Unspecified Escherichia coli [E. coli] as the cause of diseases classified elsewhere